=== PATIENT | male | born 1940 | race Caucasian/White ===

== ENCOUNTER → 2023-09-07 15:53 | Outpatient (REF) | payer MEDICARE, OTHER, SELFPAY ==
[2023-09-07 17:58] LABS: ALT (SGPT) 19 U/L (0-50); AST (SGOT) 27 U/L (17-59); Albumin 4.2 g/dl (3.5-5.0); Alkaline Phosphatase 71 U/L (38-126); Blood Urea Nitrogen 20 mg/dl (9-20); Calcium 9.6 mg/dl (8.4-10.2); Carbon Dioxide 30 mmol/L (22-30); Chloride 99 mmol/L (98-107); Glucose 96 mg/dl (70-99); Potassium 4.2 mmol/L (3.5-5.1); Sodium 139 mmol/L (135-145); Total Bilirubin 0.7 mg/dl (0.2-1.3); Total Protein 6.8 g/dl (6.3-8.2); eGFR > 60.00
== END ==
LOC: REG 15:53
PROVIDERS: ATTENDING PHYSICIAN Nurse Practitioner Adult Health
DX: R63.4 Abnormal weight loss (principal)
CPT/HCPCS: 36415; 80053

== ENCOUNTER → 2023-09-14 09:06 | Outpatient (REF) | payer MEDICARE, OTHER, SELFPAY | LOC: HWRAD 09:06 | PROVIDERS: ATTENDING PHYSICIAN Physician Assistant Medical | DX: R63.4 Abnormal weight loss (principal) | CPT/HCPCS: 71260; 74177; Q9967 ==

== ENCOUNTER → 2023-10-25 14:46 | Outpatient (REF) | payer MEDICARE, OTHER, SELFPAY ==
[2023-10-25 15:51] LABS: % Basophils 0.5 % (0-2); % Eosinophils 0.8 % (0-6); % Immature Granulocytes 0.1 % (0-0.5); % Lymphocytes 13.7 % (20.5-51.1); % Monocytes 7.6 % (1.7-9.3); % Neutrophils 77.3 % (42.2-75.2); Absolute Eosinophils 0.1 10^3/uL (0-0.7); Absolute Monocytes 0.6 10^3/uL (0.1-0.6); Absolute Neutrophils 5.7 10^3/uL (1.4-6.5); Hematocrit 40.6 % (39.0-52.0); Mean Corpuscular Hgb 30.2 pg (27.0-31.0); Mean Corpuscular Volume 94.2 fL (80.0-94.0); Mean Platelet Volume 10.1 fL (7.4-10.4); Nucleated Red Blood Cells % 0 % (-); Platelet Count 184 10^3/uL (130-400); Red Blood Cell Count 4.31 10^6/uL (4.70-6.10); Red Cell Dist. Width 14.2 % (11.5-14.5); White Blood Cell Count 7.4 10^3/uL (4.8-10.8)
[2023-10-25 16:02] LABS: ALT (SGPT) 16 U/L (0-50); AST (SGOT) 26 U/L (17-59); Albumin 3.9 g/dl (3.5-5.0); Alkaline Phosphatase 61 U/L (38-126); Blood Urea Nitrogen 21 mg/dl (9-20); Calcium 9.5 mg/dl (8.4-10.2); Carbon Dioxide 27 mmol/L (22-30); Chloride 108 mmol/L (98-107); Glucose 100 mg/dl (70-99); Potassium 4.2 mmol/L (3.5-5.1); Sodium 143 mmol/L (135-145); Total Bilirubin 0.6 mg/dl (0.2-1.3); Total Protein 6.6 g/dl (6.3-8.2); eGFR > 60.00
[2023-10-25 16:31] LABS: TSH Reflex To Free T4 0.72 uIU/ml (0.47-4.68)
== END ==
LOC: REG 14:46
PROVIDERS: ATTENDING PHYSICIAN Physician Assistant Medical
DX: R63.4 Abnormal weight loss (principal)
CPT/HCPCS: 36415; 80053; 84443; 85025

== ENCOUNTER 2024-04-26 13:35 | Observation (INO) | payer MEDICARE, OTHER, SELFPAY ==
[2024-04-25 20:48] VITALS: BP 130/74
--- NOTE | 2024-04-25 21:51 | ED.GENMED ---
History of Present Illness
General
Chief Complaint: Weakness
Source: patient and other (Neighbor)
Exam Limitations: dementia
Time Seen by Provider: 04/25/24 21:34
Nursing documentation reviewed up to this point in time: agreed with
History of Present Illness
History of Present Illness:
83-year-old male with a past medical history of dementia who presents to the emergency room with his neighbor for evaluation of confusion. Patient's neighbor reports that although he does have a history of mild dementia, he is normally rather
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
responsible as he is supposed to administer his 's medications). Apparently over the past week or 2 his neighbor has noticed patient increasingly confused and unsteady on his feet. She brought him into the emergency room to be assessed.
Patient admits to feeling somewhat confused and weak. Denies any other specific complaints. He denies any headache, chest pain, abdominal pain, cough, shortness of breath, URI symptoms, UTI symptoms, diarrhea or vomiting. He says that he had a
minor fall 2 weeks ago but cannot recall any more recent trauma.
Past History
Past History
ED Past Medical History: None
Social History
Tobacco: Non-smoker
Review of Systems
Review of Systems
All Other Systems: ROS reviewed and negative except as documented in HPI and ROS
Constitutional: Reports fatigue
Respiratory: Denies trouble breathing
Cardiac: Denies chest pain
ABD/GI: Denies abdominal pain, vomiting or diarrhea
: Denies dysuria or flank pain
Musculoskeletal: Denies neck pain or back pain
Neurological: Reports other (Confused); Denies dizzy or headache
Phy Exam
Physical Exam
Physical Exam:
General: Awake, alert, oriented x 2; no acute distress
Head: Normocephalic, atraumatic
Eyes: Conjunctiva normal, EOMI, pupils equal round and reactive to light bilateral
Throat: Airway intact, handling secretions
Neck: Trachea midline, supple without meningismus
Lungs: Clear to auscultation bilaterally, no wheezing, rales, rhonchi
Heart: Regular rate and rhythm, faint systolic murmur appreciated at right upper sternal border
Abd: Soft, non distended, nontender
Neuro: Cranial nerves intact 2 through 12, speech fluid no dysarthria or aphasia, motor and sensory function intact and symmetric upper and lower extremities
Skin: no rash, no signs of trauma
Extremities: No edema in extremities, equal pulses in all extremities
Scores
Heart Failure Risk
Heart Failure Risk Score: Not Applicable
Heart Score for Chest Pain Patients
STEMI patient?: Not applicable
Withdrawal Assessment of Alcohol
Withdrawal Assessment Completed?: Not applicable
Course
Orders/Labs/Results
Orders:
Orders
04/25/24 21:35
Electrocardiogram (*1) Urgent
Reason for Study: Fatigue / Weakness
EKG- Treatment ONCE
Urinalysis Reflex To Culture Urgent
04/25/24 21:46
CT Head W/o Iv Contrast Urgent
Comment:
Reason For Exam: confusion
04/25/24 21:47
CR Chest - 2 Views Urgent
Comment:
Reason For Exam: weak, confused
04/25/24 21:48
COVID-19 Antigen Urgent
Source: Nasal Swab
Complete Blood Count/With Diff Urgent
Comprehensive Metabolic Panel Urgent
TSH Reflex To Free T4 Urgent
04/25/24 23:01
Case Management Consult ONCE
Case Management Consult: Long Term Placement
04/25/24 23:06
Pt Eval And Treat Urgent
Activity Level: Ambulate
Abnormal Lab Results
04/25/24
21:48
RBC 4.27 L 10^6/uL
(4.70-6.10)
Hct 38.8 L %
(39.0-52.0)
Absolute Lymphs (auto) 1.1 L 10^3/uL
(1.2-3.4)
Lymphocytes % 17.3 L %
(20.5-51.1)
BUN 30 H mg/dl
(9-20)
Glucose 111 H mg/dl
(70-99)
04/25/24 21:48
04/25/24 21:48
Vital Signs
Initial and Last Documented VS:
Initial Vital Signs
Temp Pulse Resp BP Pulse Ox
36.7 C 84 16 130/74 96
04/25/24 20:48 04/25/24 20:48 04/25/24 20:48 04/25/24 20:48 04/25/24 20:48
Last Documented Vital Signs
Temp Pulse Resp BP Pulse Ox
36.7 C 84 16 130/74 96
04/25/24 20:48 04/25/24 20:48 04/25/24 20:48 04/25/24 20:48 04/25/24 20:48
MDM/Problems Addressed
Differential Diagnosis Includes:
Worsening dementia/delirium, infection including UTI/pneumonia/viral syndrome, electrolyte derangement, dehydration
MDM/Problems Addressed:
83-year-old male presents to the emergency room for evaluation of increased confusion and weakness over the past few weeks. Vitals and exam as above. Will place an IV check labs including a CBC and a CMP, thyroid studies. Check swab for COVID,
chest x-ray, urinalysis for basic infectious workup. Check CT head. Will monitor and reassess after the above.
Labs reviewed: CBC and CMP unremarkable. CT head negative. Chest x-ray no acute disease. Viral swabs normal. EKG shows sinus rhythm. No clear acute pathology at play here, suspect this may just be intermittent delirium/progression of dementia.
I had a long discussion with patient and his neighbor. She says that especially with his being hospitalized, patient would now be completely alone at home and she feels that this is an unsafe situation and I tend to agree. Patient does have a
nephew but he lives in [facility] and is unable to come to be with patient tonight. Will plan to keep overnight here in the emergency room, case management to see tomorrow to potentially coordinate short-term [place] [facility] while his is
hospitalized.
Patient's neighbor left contact information
Gabbie Flynn (neighbor): [phone]
Hany Li (nephew): [phone]
Chronic conditions affecting care:
Dementia
*Radiology
Radiology exam reviewed: preliminary read by ED provider and radiology read reviewed
*Pulse Oximetry
Patient hypoxic: no
*Critical Care Note
Total Time (30-74mins, 75-104mins- exclusive of procedures): Not Applicable
Data Reviewed
Source: patient and other (Neighbor)
ED Attending Note
-
Portions of this chart may have been created with voice recognition software.� Occasional wrong word or��sound alike� substitutions may have occurred due to the inherent limitations of voice recognition software.
Discharge Plan
Departure
Patient Disposition: Long Term/SNF
Date of Disposition: 04/25/24
Time of Disposition: 23:09
Admit to doctor: SIGRID mar for placement in AM
Discharge Problem:
Dementia
Prescriptions:
No Action
ascorbic acid (vitamin C) [Vitamin C] 500 MG tablet
500 mg PO DAILY
bimatoprost [Lumigan] 1 DROP drops
1 drp ophthalmic (eye) HS
Referrals:
UNKNOWN - PT DOES,NOT KNOW [Family Provider] -
Interventions
Interventions:
*Risk Screen - Suicide Last Done: 04/25/24 20:48
*General Assessment Last Done: 04/25/24 20:48
*Neglect/Abuse Screening Last Done: 04/25/24 20:48
ED- Fall Risk Assessment Last Done: 04/25/24 22:00
*ED COVID-19 Vaccine History Last Done: 04/25/24 20:48
ED- Cardiac Assessment Last Done: 04/25/24 22:00
ED- Neurological Assessment Last Done: 04/25/24 22:00
ED- Pulmonary Assessment Last Done: 04/25/24 22:00
Discharge Date and Time
Print Language: TELUGU
[2024-04-25 21:59] VITALS: BMI 19.3
[2024-04-25 22:01] LABS: % Basophils 0.6 % (0-2); % Eosinophils 0.8 % (0-6); % Immature Granulocytes 0.3 % (0-0.5); % Lymphocytes 17.3 % (20.5-51.1); % Monocytes 7.9 % (1.7-9.3); % Neutrophils 73.1 % (42.2-75.2); Absolute Eosinophils 0.1 10^3/uL (0-0.7); Absolute Lymphocytes 1.1 10^3/uL (1.2-3.4); Absolute Monocytes 0.5 10^3/uL (0.1-0.6); Absolute Neutrophils 4.6 10^3/uL (1.4-6.5); Hematocrit 38.8 % (39.0-52.0); Mean Corp Hgb Conc. 33.5 g/dL (33.0-37.0); Mean Corpuscular Hgb 30.4 pg (27.0-31.0); Mean Corpuscular Volume 90.9 fL (80.0-94.0); Mean Platelet Volume 9.3 fL (7.4-10.4); Nucleated Red Blood Cells % 0 % (-); Platelet Count 171 10^3/uL (130-400); Red Blood Cell Count 4.27 10^6/uL (4.70-6.10); Red Cell Dist. Width 13.8 % (11.5-14.5); White Blood Cell Count 6.3 10^3/uL (4.8-10.8)
[2024-04-25 22:14] LABS: COVID-19 Antigen Negative (Negative)
[2024-04-25 22:21] LABS: ALT (SGPT) 15 U/L (0-50); AST (SGOT) 22 U/L (17-59); Alkaline Phosphatase 56 U/L (38-126); Blood Urea Nitrogen 30 mg/dl (9-20); Calcium 9.2 mg/dl (8.4-10.2); Carbon Dioxide 26 mmol/L (22-30); Chloride 106 mmol/L (98-107); Estimated Creatinine Clearance 62 ml/min; Glucose 111 mg/dl (70-99); Sodium 143 mmol/L (135-145); Total Bilirubin 0.5 mg/dl (0.2-1.3); Total Protein 6.6 g/dl (6.3-8.2); eGFR > 60.00
[2024-04-26 01:59] LABS: Urine Albumin Trace (Neg - Trace); Urine Bilirubin Negative (Negative); Urine Character Clear (Clear); Urine Color Yellow; Urine Glucose Negative (Negative); Urine Ketone 1+ (Negative); Urine Leukocyte Negative (Negative); Urine Nitrite Negative (Negative); Urine Occult Blood Negative (Negative); Urine Urobilinogen Negative (Neg - 1+)
[2024-04-26 02:00] VITALS: BP 137/69
--- NOTE | 2024-04-26 08:24 | PHANOTE ---
MED REC NOTE- PATIENT HERE IN [place]HER WITH WHO WAS ADMITTED A COUPLE DAYS AGO, PATIENT CAREGIVER IS HIS , ALSO HAS MEMORY ISSUE. CALLED ROOM BUT NO ANSWER BUT HAD 3 MEDICATION FILLED AND NO ECW
[2024-04-26 09:29] VITALS: BP 147/83
--- NOTE | 2024-04-26 11:39 | CM ---
Patient seen bedside, confused, reports he is not sure where he is living, confirmed he does live with his , was able to then give CM address where they are residing.
CM spoke with patients Hany mejia, resides in [place], [facility]. CM discussed recommendation of short term rehab for patient, would be considered private [facility]. Hany reports he has no idea what patient/ finances are like. Hany
reports he is unable to stay with patient, patient and do not have children, neighbor, Gabbie, checks on patient daily, helps with grocery shopping. Hany unsure if patient has a POA, has been trying to get patient and his to look into
assisted living facilities, not agreeable. Hany reports patient is caregiver for , has mostly been in bed the past few days, reports patients memory is still there, physically patient has been caring for his .
Patients , patient in room 432, seen bedside with roberto Hany. Patients reports she does have a Will, provided information to Hany, will contact to see if there is any POA as patients is unsure. reports they are unable to
private pay for patient to go to rehab, would be agreeable to list of private caregivers, will provide list to patients nephew. Patients agreeable for Hany to assist with discharge planning for herself and patient.
Plan; per patient /family, unable to private pay for SNF, agreeable to list of private caregivers.
--- NOTE | 2024-04-26 12:59 | HPS.HSE ---
Addendum entered and electronically signed by Hallie Benitez MD 04/26/24 14:06:
I was able to reach patient's who stated when filled out living will patient was DNR, as she is too. I rediscussed this with patient who agrees he wouldn't want CPR. I have changed code status to DNR.
Original Note:
Family Physician
-
Family Physician: NOT KNOW UNKNOWN - PT DOES
Chief Complaint
-
caretaking issues
History of Present Illness
Mr. Jaret Simpson is a 83 yo man with hx dementia, HLD, BPH who was brought to the ER on 04/25 with report of confusion from patient's neighbor. Patient's is currently admitted.
Patient has been in the ER overnight. He tells me that physically he feels well but he feels he is losing short term memory. He denies fevers/chills, no cough/congestion, no chest pain, no shortness of breath, no nausea/vomiting/diarrhea. He is
currently about to eat lunch. During our conversation patient answers questions somewhat appropriately but is tangential. He is able to tell me he has a nephew coming from 2 hours away. He used to go grocery shopping without a problem and lately
is forgetting things.
Medical History
Past Medical History
Past Medical History: Reports Other ( dementia, HLD, BP)
Past Surgical History: Reports Other (hand surgery)
Social History
Tobacco: Non-smoker
Alcohol: None
Family History
Family History: Not pertinent
Allergies / Home Medications
Allergies reflects when Allergies were last updated in [place].
Home Medications with original date entered in [place]
Allergy/Medication List:
Allergies
Allergy/AdvReac Type Severity Reaction Status Date / Time
aspirin Allergy Unknown Verified 08/22/20 18:50
Home Medications
donepezil 5 mg tablet 5 mg PO HS cognition/memory 04/26/24
finasteride 5 mg tablet 5 mg PO DAILY Urinary Issue 04/26/24
rosuvastatin 10 mg tablet (Crestor) 10 mg PO DAILY High Cholesterol 04/26/24
Review of Systems
-
History Source: Patient
A 12 point ROS was completed and negative except as noted: Yes
Physical Exam
Vital Signs
Vital Signs
Temp Pulse Resp BP Pulse Ox
98.1 F 68 16 147/83 96
04/26/24 02:00 04/26/24 09:29 04/25/24 20:48 04/26/24 09:29 04/26/24 09:29
Physical Exam
General: Other (frail appearing)
HEENT: PERRLA
Respiratory: Clear; No Wheezes
Cardiac: S1/S2 and Regular Rhythm
GI: Soft and Non Tender
Musculoskeletal: No Edema
Skin: Warm and Dry; No Rash
Neuro: AO x 3
Psych: Calm
Laboratory Results
-
04/25/24 21:48
04/25/24 21:48
Laboratory Results
Total Bilirubin 0.5 mg/dl (0.2-1.3) 04/25/24 21:48
AST 22 U/L (17-59) 04/25/24 21:48
ALT 15 U/L (0-50) 04/25/24 21:48
Alkaline Phosphatase 56 U/L (38-126) 04/25/24 21:48
Data Reviewed
-
Diagnostic Radiology: Report Reviewed by me
Lab Data: Labs Reviewed by me
Impression/Plan
-
Mr. Jaret Simpson is a 83 yo man with hx dementia, HLD, BPH who was brought to the ER on 04/25 with report of confusion from patient's neighbor. Patient normally lives with his who is currently admitted.
Triage VS: T 36.7C, P 84, RR 16, BP 130/74, SpO2 96%
LABS: WBC 6.3, Hg 13, PLT 171, Na 143, K+ 4.0, Cl 106, BUN 30, Cr 0.8, Glucose 111, liver enzymes WNL
covid negative
HEAD CT 04/25/24
IMPRESSION:
No acute intracranial abnormality.
CXR 04/25/24
IMPRESSION:
No acute cardiopulmonary process.
Confusion
Ambulatory Dysfunction
-infectious and metabolic work-up negative, may be progression of dementia/ worsening confusion while is hospitalized. Worked with PT this morning and SNF recommended but patient needs time for placement and will need financial applications
completed per CM. will therefore admit to observation with further PT/OT
HLD
-OIL WELL ENGINEER Crestor
Dementia
-OIL WELL ENGINEER Donepezil
BPH
-OIL WELL ENGINEER Finasteride
DVT PPx Lovenox subQ
FULL CODE - patient with competence to answer this question on admission stating for catholic purposes he would want everything done - will confirm with family once I reach them
[2024-04-26 14:55] VITALS: BP 133/75
[2024-04-26 14:57] VITALS: BMI 18.6
--- NOTE | 2024-04-26 15:21 | PTCARENOTE ---
pt presents from ED via wheel chair. pt is AAO*2, hx of dementia at baseline. pt is pleasantly confused. bed alarm in. no c/o pain at this time. plan of care ongoing.
--- NOTE | 2024-04-26 16:31 | PTCARENOTE ---
pt on research study. pt with meds from study. pt states to take it while he is at the hospital. Dr. Benitez made aware.
[2024-04-26 16:40] LABS: Vitamin B12 302 pg/ml (239-931)
[2024-04-26] MEDS: LOVENOX 40 MG SC (17:06)
[2024-04-26] MEDS: [UNRECOGNIZED DRUG - REMARK] 1 UNIT PO (21:27)
[2024-04-26] MEDS: ARICEPT 5 MG PO (21:27)
[2024-04-26 23:00] VITALS: BP 141/85
[2024-04-27 08:00] VITALS: BP 143/89
[2024-04-27 08:03] LABS: Hematocrit 38.9 % (39.0-52.0); Hemoglobin 13.2 g/dL (13.0-18.0); Mean Corp Hgb Conc. 33.9 g/dL (33.0-37.0); Mean Corpuscular Hgb 31.1 pg (27.0-31.0); Mean Corpuscular Volume 91.7 fL (80.0-94.0); Platelet Count 162 10^3/uL (130-400); Red Blood Cell Count 4.24 10^6/uL (4.70-6.10); Red Cell Dist. Width 13.7 % (11.5-14.5)
[2024-04-27] MEDS: CRESTOR 10 MG PO (08:24)
[2024-04-27] MEDS: PROSCAR 5 MG PO (08:24)
[2024-04-27] MEDS: [UNRECOGNIZED DRUG - REMARK] 1 UNIT PO ×2 (08:31→20:37)
[2024-04-27 08:33] LABS: Blood Urea Nitrogen 21 mg/dl (9-20); Calcium 8.7 mg/dl (8.4-10.2); Carbon Dioxide 29 mmol/L (22-30); Chloride 104 mmol/L (98-107); Estimated Creatinine Clearance 69 ml/min; Glucose 97 mg/dl (70-99); Potassium 3.7 mmol/L (3.5-5.1); Sodium 141 mmol/L (135-145); eGFR > 60.00
[2024-04-27 13:04] VITALS: BP 141/96; PULSE 74; O2SAT 97
--- NOTE | 2024-04-27 14:25 | W.PN.HOSP.TC ---
Today's Communication/Plan
-
d/c planning
Assessment / Plan
Assessment / Plan
HEAD CT 04/25/24
IMPRESSION:
No acute intracranial abnormality.
CXR 04/25/24
IMPRESSION:
No acute cardiopulmonary process.

Mild cognitive impairment
Ambulatory Dysfunction
-No clear explanation based on workup of secondary reason of encephalopathy
-Patient have some mild cognitive impairment and already on donepezil
-Patient primarily requires a safe discharge plan at this point
-Does not have any behavioral problems and very pleasant to interact
HLD
-GRAIN FARMWORKER Crestor
Dementia
-GRAIN FARMWORKER Donepezil
BPH
-GRAIN FARMWORKER Finasteride
DVT PPx Lovenox subQ
FULL CODE -
Anticipated Discharge: Today
Subjective/Interval History
-
Date of Service: April 27, 2024
no complains overnight
Objective Data
-
Labs:
Laboratory Results
04/27/24
07:39
WBC 7.0
Hgb 13.2
Hct 38.9 L
Plt Count 162
Sodium 141
Potassium 3.7
Chloride 104
Carbon Dioxide 29
BUN 21 H
Creatinine 0.7
Glucose 97
Calcium 8.7
Vital Signs:
Vital Signs
Temp Pulse Resp BP Pulse Ox
98.2 F 63 18 143/89 97
04/27/24 08:00 04/27/24 08:00 04/27/24 08:00 04/27/24 08:00 04/27/24 08:00
I&O
04/26/24 04/27/24 04/28/24
06:59 06:59 06:59
Output Total 500 / 500
Balance -500 / -500
Review of Systems
-
Respiratory: Reports No Symptoms
Cardiac: Reports No Symptoms
Abdomen/GI: Reports No Symptoms
Physical Exam
-
General: No Apparent Distress and Comfortable
HEENT: Negative Oxygen
Respiratory: Clear to Auscultation
Cardiac: Regular Rhythm and S1/S2; Negative Murmur or Rub
GI: Soft, Nontender, Nondistended and Normal Bowel Sounds
Musculoskeletal: No Edema
Neuro: Awake, Alert, No Motor Deficits and Nonfocal/Grossly Intact
Psych: Calm
[2024-04-27 15:40] VITALS: BMI 18.6
[2024-04-27 15:42] VITALS: BP 131/73
--- NOTE | 2024-04-27 16:50 | PTCARENOTE ---
Assumed care at 0715. Patient confused to place, alert to time and date. Able to a make needs known, very forgetful. VSS, bed alarm in place, call chavez in reach
[2024-04-27] MEDS: LOVENOX 40 MG SC (17:36)
--- NOTE | 2024-04-27 18:11 | CM ---
Alert confused forgetful patient who lives with his Desiree who is also in hospital and confused. He provides total care to her .They live in a 2 story home with 2 step to enter .[employer]PER[employer] he was independent in driving and in all activities of daily
living.As per PT OT needs SNF. He is under observation and not part of waiver program. STACI given explained Copy on chart he did not sign it.As per CM for they have a nephew Hany [phone] . CM did not speak with him.
Pharmacy [facility]
PCP DR Luveano but he is unsure
PLAN Needs SNF . He is under Observation
[2024-04-27] MEDS: ARICEPT 5 MG PO (20:37)
[2024-04-27 23:15] VITALS: BP 162/94
[2024-04-28 07:35] VITALS: BP 141/75
[2024-04-28] MEDS: PROSCAR 5 MG PO (10:20)
[2024-04-28] MEDS: CRESTOR 10 MG PO (10:20)
[2024-04-28] MEDS: [UNRECOGNIZED DRUG - REMARK] 1 UNIT PO ×2 (10:21→20:35)
[2024-04-28 15:20] VITALS: BP 119/67
--- NOTE | 2024-04-28 15:41 | W.PN.HOSP.TC ---
Today's Communication/Plan
-
psych consult
Assessment / Plan
Assessment / Plan
HEAD CT 04/25/24
IMPRESSION:
No acute intracranial abnormality.
CXR 04/25/24
IMPRESSION:
No acute cardiopulmonary process.

Mild cognitive impairment
Ambulatory Dysfunction
-No clear explanation based on workup of secondary reason of encephalopathy
-Patient have some mild cognitive impairment and already on donepezil
-Patient primarily requires a safe discharge plan at this point
-Does not have any behavioral problems and very pleasant to interact
Probably at baseline status. Reviewed with SIGRID Irwin. Will request psych input
HLD
-INSTRUCTOR ADJUNCT SURGICAL TECHNICIAN Crestor
Dementia
-INSTRUCTOR ADJUNCT SURGICAL TECHNICIAN Donepezil
BPH
-INSTRUCTOR ADJUNCT SURGICAL TECHNICIAN Finasteride
DVT PPx Lovenox subQ
FULL CODE -
Anticipated Discharge: 24 - 48 hours
Subjective/Interval History
-
Date of Service: April 28, 2024
Awake, alert, answering basic questions, obvious impaired cognitive fxn
Objective Data
-
Vital Signs:
Vital Signs
Temp Pulse Resp BP Pulse Ox
97.7 F 66 16 141/75 97
04/28/24 07:35 04/28/24 07:35 04/28/24 07:35 04/28/24 07:35 04/28/24 07:35
I&O
04/27/24 04/28/24 04/29/24
06:59 06:59 06:59
Intake Total 0 / 0
Output Total 500 / 500 575 / 575
Balance -500 / -500 -575 / -575
Review of Systems
-
Unable to obtain full review of systems at this time due to: Dementia
History Source: Patient and Coordinated Provider (reviewed with case management)
Constitutional: Denies Fever
EENT: Reports No Symptoms Reported
Respiratory: Reports No Symptoms
Cardiac: Reports No Symptoms
Abdomen/GI: Reports No Symptoms
Physical Exam
-
General: Well Developed, No Apparent Distress and Comfortable
HEENT: Normocephalic, Atraumatic and Moist Mucous Membranes
Respiratory: Clear to Auscultation; Negative Wheezes, Rales or Rhonchi
Cardiac: Regular Rhythm and S1/S2
GI: Soft, Nontender and Nondistended
Musculoskeletal: No Clubbing, No Cyanosis and No Edema
Neuro: Awake and Alert
[2024-04-28] MEDS: LOVENOX 40 MG SC (18:26)
[2024-04-28] MEDS: ARICEPT 5 MG PO (20:35)
[2024-04-29 00:01] VITALS: BP 159/98
[2024-04-29 07:40] VITALS: BP 149/89
[2024-04-29] MEDS: [UNRECOGNIZED DRUG - REMARK] 1 UNIT PO ×2 (08:13→20:16)
[2024-04-29] MEDS: PROSCAR 5 MG PO (08:13)
[2024-04-29] MEDS: CRESTOR 10 MG PO (08:13)
--- NOTE | 2024-04-29 11:52 | W.PN.HOSP.TC ---
Today's Communication/Plan
-
await input from psych to help facilitate disposition
Assessment / Plan
Assessment / Plan
HEAD CT 04/25/24
IMPRESSION:
No acute intracranial abnormality. Moderate parenchymal atrophy. (my read is moderate to severe)
CXR 04/25/24
IMPRESSION:
No acute cardiopulmonary process.

Mild cognitive impairment
Ambulatory Dysfunction
-No clear explanation based on workup of secondary reason of encephalopathy
-Patient have some mild cognitive impairment and already on donepezil
-Patient primarily requires a safe discharge plan at this point
-Does not have any behavioral problems and very pleasant to interact
Probably at baseline status. Reviewed with SIGRID Irwin 04/28. Will request psych input
HLD
-PLUG WIRER Crestor
Dementia
-PLUG WIRER Donepezil
BPH
-PLUG WIRER Finasteride
DVT PPx Lovenox subQ
FULL CODE -
Anticipated Discharge: 24 - 48 hours
Subjective/Interval History
-
Date of Service: April 29, 2024
Awake, alert. Seems more cognitively better today compared to yesterday
Objective Data
-
Vital Signs:
Vital Signs
Temp Pulse Resp BP Pulse Ox
97.7 F 68 16 149/89 95
04/29/24 07:40 04/29/24 07:40 04/29/24 07:40 04/29/24 07:40 04/29/24 07:40
I&O
04/28/24 04/29/24 04/30/24
06:59 06:59 06:59
Intake Total 0 / 0 1200 / 1200
Output Total 575 / 575 750 / 750
Balance -575 / -575 450 / 450
Review of Systems
-
Unable to obtain full review of systems at this time due to: Dementia
History Source: Patient and Coordinated Provider (reviewed with case management 04/28)
Constitutional: Denies Fever
EENT: Reports No Symptoms Reported
Respiratory: Reports No Symptoms
Cardiac: Reports No Symptoms
Abdomen/GI: Reports No Symptoms
Physical Exam
-
General: Well Developed, No Apparent Distress and Comfortable
HEENT: Normocephalic, Atraumatic and Moist Mucous Membranes
Respiratory: Clear to Auscultation; Negative Wheezes, Rales or Rhonchi
Cardiac: Regular Rhythm and S1/S2
GI: Soft, Nontender and Nondistended
Musculoskeletal: No Clubbing, No Cyanosis and No Edema
Neuro: Awake, Alert and Oriented (more conversant today, discussed his prior occupation, still with some degree of rambling speech)
--- NOTE | 2024-04-29 13:53 | CS.PSYCHR ---
Consult Summary - Psychiatry
-
Pt is an 83 yo male with dementia, who was brought to the ER on 04/25 with report of confusion from patient's neighbor. Pt's is reportedly admitted. Pt noted to be pleasantly confused since admission. Psychiatry asked to assess if any other
condition is affecting pt's mental state/behavior. Pt seen sitting up in chair, alert, calm, pleasant, aware he has memory problems, able to state he is on a study drug, has been taking it for 5 years, with 'some improvement'. Pt able state he is
in [facility], states the people are nice.
PMH: dementia, HLD, BPH
Psych Hx: denies
SH: lives with in a private one-story home; is noted to be currently admitted
MSE: alert, calm, cooperative, oriented to name, place, time/date. Appropriate affect. Mood good, denies depression or anxiety. Speech coherent, thought clear. No signs of psychosis, no agitation. Insight appears fair
Imp: Dementia. No indication for psychiatric intervention, no behavior disturbance
Rec: continue current medications for dementia. Appears psychiatrically stable to return to outpatient care
[2024-04-29 15:30] VITALS: BP 104/60
[2024-04-29] MEDS: LOVENOX 40 MG SC (17:34)
[2024-04-29] MEDS: ARICEPT 5 MG PO (20:16)
[2024-04-29 23:32] VITALS: BP 148/82
[2024-04-30 08:20] VITALS: BP 148/87
[2024-04-30] MEDS: PROSCAR 5 MG PO (08:27)
[2024-04-30] MEDS: CRESTOR 10 MG PO (08:27)
[2024-04-30] MEDS: [UNRECOGNIZED DRUG - REMARK] 1 UNIT PO ×2 (08:28→21:39)
--- NOTE | 2024-04-30 11:45 | CM ---
Addendum entered by Bhumika Mota 04/30/24 15:46:
additional referrals sent to [facility]. await responses.
Addendum entered by Bhumika Mota 04/30/24 13:32:
Patient is on an investigative drug and is willing to go off of the medication if it were to mean that he could be with his . CM will call to nephew to continue investigation of options. Per Debora Hoyt patient nephew stated that his uncle had
driven himself and gotten lost in the last month. CM will call to nephew and explore other options. But [facility] unwilling to accept without contact with POA/financial person to assist with plan. CM will continue to follow for discharge planning needs.
Plan; SNF
Addendum entered by Bhumika Mota 04/30/24 12:58:
Patient referral sent to [facility]. CM awaiting response.
Original Note:
Patient declined by [facility] due to no beds. CM will continue to coordinate with CM to go to the same facility. Patient nephew indicated that private pay would not be a concern and indicated that the executrix is Adeola Linares in [place].
CM will continue to follow for discharge planning needs.
Plan; SNF
[2024-04-30 15:58] VITALS: BP 138/82
[2024-04-30] MEDS: LOVENOX 40 MG SC (17:03)
--- NOTE | 2024-04-30 17:40 | W.PN.HOSP.TC ---
Today's Communication/Plan
-
continue current Tx. Await dispo
Assessment / Plan
Assessment / Plan
HEAD CT 04/25/24
IMPRESSION:
No acute intracranial abnormality. Moderate parenchymal atrophy. (my read is moderate to severe)
CXR 04/25/24
IMPRESSION:
No acute cardiopulmonary process.

Mild cognitive impairment
Ambulatory Dysfunction
-No clear explanation based on workup of secondary reason of encephalopathy
-Patient have some mild cognitive impairment and already on donepezil as well as a study drug of unknown type
-Patient primarily requires a safe discharge plan at this point
-Does not have any behavioral problems and very pleasant to interact
Probably at baseline status. Reviewed with SIGRID Denson 04/30. Appreciate psych input
would do best at an assisted living facility, reviewed with SIGRID. Await if can be worked out logistically
HLD
-DESIGN CHIEF Crestor
Dementia
-DESIGN CHIEF Donepezil
BPH
-DESIGN CHIEF Finasteride
DVT PPx Lovenox subQ
FULL CODE -
Anticipated Discharge: 24 - 48 hours
Subjective/Interval History
-
Date of Service: April 30, 2024
Calm, conversant
Objective Data
-
Vital Signs:
Vital Signs
Temp Pulse Resp BP Pulse Ox
98 F 70 18 138/82 98
04/30/24 15:58 04/30/24 15:58 04/30/24 15:58 04/30/24 15:58 04/30/24 15:58
I&O
04/29/24 04/30/24 05/01/24
06:59 06:59 06:59
Intake Total 1200 / 1200 870 / 870
Output Total 750 / 750 450 / 450
Balance 450 / 450 420 / 420
Review of Systems
-
Unable to obtain full review of systems at this time due to: Dementia
History Source: Patient and Coordinated Provider (reviewed with case management 04/30)
Constitutional: Denies Fever
EENT: Reports No Symptoms Reported
Respiratory: Reports No Symptoms
Cardiac: Reports No Symptoms
Abdomen/GI: Reports No Symptoms
Physical Exam
-
General: Well Developed, No Apparent Distress and Comfortable
HEENT: Normocephalic, Atraumatic and Moist Mucous Membranes
Respiratory: Clear to Auscultation; Negative Wheezes, Rales or Rhonchi
Cardiac: Regular Rhythm and S1/S2
GI: Soft, Nontender and Nondistended
Musculoskeletal: No Clubbing, No Cyanosis and No Edema
Neuro: Awake, Alert and Oriented (more conversant today, discussed his prior occupation, still with some degree of rambling speech)
[2024-04-30] MEDS: ARICEPT 5 MG PO (21:39)
[2024-04-30 23:45] VITALS: BP 116/74
[2024-05-01 07:35] VITALS: BP 139/83
[2024-05-01] MEDS: CRESTOR 10 MG PO (08:58)
[2024-05-01] MEDS: [UNRECOGNIZED DRUG - REMARK] 1 UNIT PO (08:58)
[2024-05-01] MEDS: PROSCAR 5 MG PO (08:58)
[2024-05-01 11:39] LABS: Glucose - Point of Care 95 mg/dl (70-99)
[2024-05-01 12:20] VITALS: BP 126/74; PULSE 72
[2024-05-01 15:09] VITALS: BP 106/68
--- NOTE | 2024-05-01 15:23 | W.PN.HOSP.TC ---
Today's Communication/Plan
-
dc now
Assessment / Plan
Assessment / Plan
HEAD CT 04/25/24
IMPRESSION:
No acute intracranial abnormality. Moderate parenchymal atrophy. (my read is moderate to severe)
CXR 04/25/24
IMPRESSION:
No acute cardiopulmonary process.

Mild cognitive impairment
Ambulatory Dysfunction
-No clear explanation based on workup of secondary reason of encephalopathy
-Patient have some mild cognitive impairment and already on donepezil as well as a study drug of unknown type
-Patient primarily requires a safe discharge plan at this point
-Does not have any behavioral problems and very pleasant to interact
Probably at baseline status. Reviewed with CM 05/01. Appreciate psych input
will dc to [facility]
HLD
-ETCHER APPRENTICE PHOTOENGRAVING Crestor
Dementia
-ETCHER APPRENTICE PHOTOENGRAVING Donepezil
BPH
-ETCHER APPRENTICE PHOTOENGRAVING Finasteride
DVT PPx Lovenox subQ
FULL CODE -
More than 30 minutes spent in discharge including
Final examination of the patient
Summarizing hospital stay
Instructions for continuing care to all relevant caregivers
Preparation of discharge records, prescriptions, and referral forms
Total time spent (in minutes): 45
Anticipated Discharge: Today
Subjective/Interval History
-
Date of Service: May 01, 2024
Just notified by that [facility] will accept
Objective Data
-
Vital Signs:
Vital Signs
Temp Pulse Resp BP Pulse Ox
98.1 F 86 20 106/68 95
05/01/24 15:09 05/01/24 15:09 05/01/24 15:09 05/01/24 15:09 05/01/24 15:09
I&O
04/30/24 05/01/24 05/02/24
06:59 06:59 06:59
Intake Total 870 / 870 960 / 960
Output Total 450 / 450 675 / 675
Balance 420 / 420 285 / 285
Review of Systems
-
Unable to obtain full review of systems at this time due to: Dementia
History Source: Patient and Coordinated Provider (reviewed with case management 05/01 x 3 today)
Constitutional: Denies Fever
EENT: Reports No Symptoms Reported
Respiratory: Reports No Symptoms
Cardiac: Reports No Symptoms
Abdomen/GI: Reports No Symptoms
Physical Exam
-
General: Well Developed, No Apparent Distress and Comfortable
HEENT: Normocephalic, Atraumatic and Moist Mucous Membranes
Respiratory: Clear to Auscultation; Negative Wheezes, Rales or Rhonchi
Cardiac: Regular Rhythm and S1/S2
GI: Soft, Nontender and Nondistended
Musculoskeletal: No Clubbing, No Cyanosis and No Edema
Neuro: Awake, Alert and Oriented (more conversant today, actually discussing reasonably appropriately)
--- NOTE | 2024-05-01 15:30 | W.DS.TRANS ---
DC Summary - Vp Client Services
-
Discharge Instructions:
Discharge Diagnosis/Procedures Acute on Chronic Dementia
Diet Regular
Activity With assistance
Driving Restrictions No driving
Bathing Restrictions None
Instructions:
Stand-Alone Forms:
Changes to Home Medications: No
Discharge Medications:
DC Medications w/original date entered in [facility]
donepezil 5 mg tablet 5 mg PO HS cognition/memory 04/26/24
finasteride 5 mg tablet 5 mg PO DAILY Urinary Issue 04/26/24
rosuvastatin 10 mg tablet (Crestor) 10 mg PO DAILY High Cholesterol 04/26/24
Research Medication 1 tab PO BID 04/28/24
polyethylene glycol 3350 17 gram oral powder packet 17 g PO DAILYPRN PRN constipation #0 ea 05/01/24
Home Medication Changes
Pending Results: No
--- NOTE | 2024-05-01 16:29 | CM ---
Spoke with pt in room .He is less confused.
PT OT indicate SNF.
Pt requested [facility].
Shelley from [facility] worked with family and pt was accepted today.
Gabbie pts neighbor was visiting today . IMM reviewed with pt He agreed with dc.IMM signed on chart . Copy given to pt . too.
Medical nec form completed Ambulance set up .
[facility]
report [phone]
fax [phone]
PLAN To [facility] for SNF .
== END 2024-05-01 18:43 ==
LOC: 4 EAST ACU 13:35
PROVIDERS: ADMITTING PHYSICIAN Student in an Organized Health Care Education/Training Program; ATTENDING PHYSICIAN Internal Medicine; EMERGENCY PHYSICIAN Emergency Medicine
DX: F03.90 Unspecified dementia, unspecified severity, without behavioral disturbance, psychotic disturbance, mood disturbance, and anxiety (principal); Z02.2 Encounter for examination for admission to residential institution; Z11.52 Encounter for screening for COVID-19; Z66 Do not resuscitate; N40.0 Benign prostatic hyperplasia without lower urinary tract symptoms; E78.5 Hyperlipidemia, unspecified; Z79.899 Other long term (current) drug therapy; R26.2 Difficulty in walking, not elsewhere classified
CPT/HCPCS: 70450; 71046; 80048; 80053; 81003; 82607; 82962; 84443; 85025; 85027; 87811; 93005; 97116; 97167; 97530; 99284; G0378

== ENCOUNTER → 2024-05-04 11:24 | Outpatient (REF) | payer OTHER, MEDICARE, SELFPAY ==
[2024-05-04 12:23] LABS: % Basophils 0.6 % (0-2); % Eosinophils 1.4 % (0-6); % Immature Granulocytes 0.2 % (0-0.5); % Monocytes 7.5 % (1.7-9.3); % Neutrophils 74.3 % (42.2-75.2); Absolute Basophils 0.1 10^3/uL (0-0.2); Absolute Eosinophils 0.1 10^3/uL (0-0.7); Absolute Lymphocytes 1.3 10^3/uL (1.2-3.4); Absolute Monocytes 0.6 10^3/uL (0.1-0.6); Hematocrit 43.8 % (39.0-52.0); Hemoglobin 14.1 g/dL (13.0-18.0); Mean Corp Hgb Conc. 32.2 g/dL (33.0-37.0); Mean Corpuscular Hgb 30.4 pg (27.0-31.0); Mean Corpuscular Volume 94.4 fL (80.0-94.0); Mean Platelet Volume 10.7 fL (7.4-10.4); Nucleated Red Blood Cells % 0 % (-); Platelet Count 210 10^3/uL (130-400); Red Blood Cell Count 4.64 10^6/uL (4.70-6.10); Red Cell Dist. Width 14.1 % (11.5-14.5)
[2024-05-04 12:51] LABS: ALT (SGPT) 20 U/L (0-50); AST (SGOT) 25 U/L (17-59); Alkaline Phosphatase 69 U/L (38-126); Blood Urea Nitrogen 22 mg/dl (9-20); Calcium 9.3 mg/dl (8.4-10.2); Carbon Dioxide 29 mmol/L (22-30); Chloride 104 mmol/L (98-107); Glucose 107 mg/dl (70-99); Magnesium 2.1 mg/dl (1.6-2.3); Sodium 142 mmol/L (135-145); Total Bilirubin 0.5 mg/dl (0.2-1.3); Total Protein 6.7 g/dl (6.3-8.2); eGFR > 60.00
== END ==
LOC: OLABWHC 11:24
PROVIDERS: ATTENDING PHYSICIAN Family Medicine
DX: E78.00 Pure hypercholesterolemia, unspecified (principal)
CPT/HCPCS: 36415; 80053; 83735; 85025

== ENCOUNTER 2024-05-28 12:08 | Inpatient (IN) | payer MEDICARE, OTHER, SELFPAY ==
[2024-05-26 22:46] VITALS: BP 140/76
[2024-05-26 22:48] VITALS: BP 140/76
--- NOTE | 2024-05-26 23:03 | ED.GENMED ---
History of Present Illness
General
Chief Complaint: Abdominal Symptoms
Source: patient, ambulance crew, long-term and previous hospital records (Recent hospitalization April 25 to May 01-primarily social admission due to acute progressive dementia requiring long-term placement)
Exam Limitations: none
Time Seen by Provider: 05/26/24 22:44
Nursing documentation reviewed up to this point in time: agreed with
History of Present Illness
History of Present Illness:
This is an 84-year-old gentleman with history of dementia who had been residing at home with his but due to acute progressive dementia that abruptly worsened 1 month ago when his was acutely hospitalized, patient himself was hospitalized
here April 25 to May 01. Case management was able to arrange for both patient and his to be admitted to [facility]. [facility]
He presents with near 48-hour history of nausea/vomiting/diarrhea and fever. He states his had similar illness that began 3 to 4 days ago, she is currently improving.
senior care reports fever tonight of 101 �F. He was given Tylenol approximately 1 and half hours ago. He was started on as needed Zofran and Imodium yesterday. At this point unclear as to his last dose of Zofran/Imodium. There has been no
report of hematemesis nor hematochezia. He does admit to intermittent mild crampy abdominal pain but currently denies pain.
He denies fall. He does admit to moderate generalized weakness and overall not feeling well.
According to long-term records. No recent antibiotic use.
Of note, norovirus is running rampant at [facility]. The dining mendez has been closed for the past week.
Past History
Past History
ED Past Medical History: Hypercholesterolemia, Psychiatric (Dementia) and Other (BPH)
ED Past Surgical History: Orthopedic (Hand surgery)
Social History
Tobacco: Non-smoker
Alcohol: None
Personal:
Living: long-term (Admitted to [facility] May 01, 2024 along with his .)
Employment: Retired
Family History
Family History: Other (Noncontributory)
Phy Exam
Physical Exam
Physical Exam:
GENERAL: 84-year-old gentleman appears his stated age, awake and alert, oriented x 2. Mildly ill in appearance. He is easily communicative, answering questions appropriately. Febrile 100 �F. Currently normotensive and without tachycardia.
EYE: pupils equal and reactive. anicteric
NECK: Supple, nontender, no meningismus, no significant adenopathy.
ENT: posterior pharynx is clear, oral mucosa is significantly dry. TM clear b/l, nares patent.
CARDIAC: Regular rate and rhythm. 3/6 holosystolic murmur left sternal border
LUNGS: Clear breath sounds bilaterally, no acute respiratory distress, no wheezes/rales/rhonchi
ABDOMEN: Soft, nondistended, mild generalized tenderness to palpation, no r/g, no cvat. No palpable masses. Mildly hyperactive bowel sounds.
NEUROLOGICAL: Alert and oriented x2, no focal neuro deficits.
SKIN: Moderately hot to touch and dry, normal color, skin intact. There is a lacy/macular, dry, slightly scaly rash bilateral anterolateral lower legs right leg greater than left.
MUSCULOSKELETAL: No C/C/E. peripheral pulses are full and equal b/l. No palpable tenderness.
PSYCH: Normal and appropriate interaction.
Course
Orders/Labs/Results
Orders:
Orders
05/26/24 23:00
Urinalysis Reflex To Culture Urgent
Date Specimen was Collected: 05/27/24
Time Specimen was Collected: 05:55
Norovirus by PCR Urgent
ALIZE Source: Feces/Stool
Specimen Description:
Stool Culture Urgent
ALIZE Source: Feces/Stool
Specimen Description:
0.9% Sodium Chloride 1000 ml [Nss] 1,000 ml IV BOLUS
05/26/24 23:05
Complete Blood Count/With Diff Urgent
Comprehensive Metabolic Panel Urgent
Lactic Acid Q4H
Comment: CANCEL 2nd LACTIC ACID IF 1st LACTIC ACID IS LESS THAN 2
Lipase Urgent
Magnesium Urgent
05/27/24 00:09
CT Abd/pelvis W Iv Cont Urgent
Comment:
Reason For Exam: gen abd pain, N/V/D, fever
05/27/24 03:07
Admit/Transfer Patient As Directed
Co-Sign Provider:
Level of Care: Observation services
Assign to:: Medical/Surgical
Physician / Group: hospitalist
Diagnosis: enteritis
05/27/24 03:08
PRN Pain Medication Management As Directed
May give lesser potent ordered pain med per pt: Yes
preference::
Protocol:: Medication orders for pain may be administered in a
manner that supports deferring to patient preference
when the pt is:
- Requesting an ordered lesser potent pain medication.
Least to most potent pain medications are defined
as: acetaminophen < NSAID < tramadol < opioids
(morphine, oxycodone, hydromorphone).
- Requesting a lesser dose of the same medication IF
ORDERED.
- Requesting a less intrusive route of administration
if both routes are prescribed by the provider (PO <
IV).
05/27/24 03:09
Code Status As Directed
Resuscitation Status: Do not resuscitate
Reached after discussion with pt or family/Healthcare POA: Yes
DNR Bracelet Application ONCE
05/27/24 03:13
C difficile Antigen & Toxins Urgent
ALIZE Source: Feces/Stool
Specimen Description:
05/27/24 04:29
COVID-19 Antigen Stat
Source: Nasal Swab
05/27/24 05:13
0.9% Sodium Chloride 1000 ml [Nss] 1,000 ml IV 75 mls/hr
Acetaminophen [Tylenol] 650 mg PO Q4HPRN PRN
Ondansetron Injectable [Zofran] 4 mg IV Q6HPRN PRN
05/27/24 05:13
Activity As Directed
Activity Level: With Assistance
Vital Signs As Directed
Frequency: Per unit guidelines
DX Deep Vein Thrombosis Video Routine
05/27/24 05:51
Basic Metabolic Panel IN AM
Complete Blood Count/No Diff IN AM
Magnesium IN AM
05/27/24 Breakfast
Regular
At Your Request: Non-Participating
05/27/24 08:00
Finasteride [Proscar] 5 mg PO DAILY
05/27/24 18:00
Enoxaparin Sodium [Lovenox] 40 mg SC QPM
05/27/24 22:00
Atorvastatin [Lipitor] 20 mg PO HS
Donepezil [Aricept] 5 mg PO HS
Abnormal Lab Results
05/26/24
23:05
WBC 12.4 H 10^3/uL
(4.8-10.8)
MCHC 32.4 L g/dL
(33.0-37.0)
Abs Immat Gran (auto) 0.1 H 10^3/uL
(0-0.05)
Absolute Neuts (auto) 11.8 H 10^3/uL
(1.4-6.5)
Absolute Lymphs (auto) 0.1 L 10^3/uL
(1.2-3.4)
Immature Gran % 0.6 H %
(0-0.5)
Neutrophils % 95.1 H %
(42.2-75.2)
Lymphocytes % 0.9 L %
(20.5-51.1)
BUN 28 H mg/dl
(9-20)
Glucose 156 H mg/dl
(70-99)
05/26/24 23:05
05/26/24 23:05
Vital Signs
Initial and Last Documented VS:
Initial Vital Signs
Temp Pulse Resp BP Pulse Ox
99.2 F 97 20 140/76 92
05/26/24 22:46 05/26/24 22:46 05/26/24 22:46 05/26/24 22:46 05/26/24 22:46
Last Documented Vital Signs
Temp Pulse Resp BP Pulse Ox
98.8 F 90 19 142/78 92
05/27/24 06:15 05/27/24 06:15 05/27/24 06:15 05/27/24 06:00 05/27/24 06:15
MDM/Problems Addressed
Differential Diagnosis Includes:
Concern for acute gastroenteritis, significant concern for acute norovirus as multiple residents of long-term with similar symptoms.
Other consideration is colitis, diverticulitis, less likely small bowel obstruction.
Patient does have history of BPH although does not appear to have prior history of UTIs. UTI is certainly a consideration however.
He is noted to be febrile but thus far hemodynamically stable. Concern for SIRS/sepsis.
Concern for dehydration, acute kidney injury, electrolyte derangement.
Labs are pending including lactic acid. Will initiate IV fluid resuscitation.
Chronic conditions affecting care: Psychiatric illness (Dementia) and Other (BPH)
*Radiology
Radiology exam reviewed: radiology read reviewed (CAT scan shows acute enteritis with mildly prominent loops of small bowel. No bowel obstruction.)
*Pulse Oximetry
Patient hypoxic: no
*EKG
Interpreted by ED Provider?: Yes
Interpretation: normal
Comparison EKG: no changes (Unchanged from previous April 2019)
Rate: normal
Rhythm: sinus
[place]: left axis deviation
Interval: long QT
QRS Pattern: normal QRS
Ischemia: no ischemia
*Health Careers Instructor Interpretation
Rate: normal
Interpretation: normal
Rhythm: sinus
*Critical Care Note
Total Time (30-74mins, 75-104mins- exclusive of procedures): Not Applicable
Update Note
Update Note:
Patient feeling mildly improved but continues with significant nausea, generalized crampy abdominal discomfort.
Labs show elevated white blood cell count of 16. Mild to moderate prerenal azotemia with BUN of 28.
Lactic acid normal at 1.4.
CAT scan shows acute enteritis.
Will continue IV fluids, antiemetics and admit to hospitalist service.
ED Attending Note
-
Portions of this chart may have been created with voice recognition software.� Occasional wrong word or��sound alike� substitutions may have occurred due to the inherent limitations of voice recognition software.
Discharge Plan
Departure
Patient Disposition: Admit
Admit to: Med/Surg
Admit to doctor: [facility]
Presentation/result/management discussed w/ accepting MD/DO: Hospitalist
Condition: Fair
Discharge Problem:
Acute gastroenteritis, SIRS (systemic inflammatory response syndrome)
Interventions
Interventions:
*Risk Screen - Suicide Last Done: 05/26/24 22:46
*General Assessment Last Done: 05/26/24 22:46
*Neglect/Abuse Screening Last Done: 05/26/24 22:46
*ED COVID-19 Vaccine History Last Done: 05/26/24 23:11
BQ-Ioiwsk-Pwuyzhximf Assessment Last Done: 05/26/24 23:11
[2024-05-26] MEDS: NSS 1000 IV (23:04)
[2024-05-26 23:14] LABS: % Basophils 0.2 % (0-2); % Immature Granulocytes 0.6 % (0-0.5); % Lymphocytes 0.9 % (20.5-51.1); % Monocytes 3.2 % (1.7-9.3); % Neutrophils 95.1 % (42.2-75.2); Absolute Immature Granulocytes 0.1 10^3/uL (0-0.05); Absolute Lymphocytes 0.1 10^3/uL (1.2-3.4); Absolute Monocytes 0.4 10^3/uL (0.1-0.6); Absolute Neutrophils 11.8 10^3/uL (1.4-6.5); Hematocrit 44.7 % (39.0-52.0); Hemoglobin 14.5 g/dL (13.0-18.0); Mean Corp Hgb Conc. 32.4 g/dL (33.0-37.0); Mean Corpuscular Hgb 30.4 pg (27.0-31.0); Mean Corpuscular Volume 93.7 fL (80.0-94.0); Mean Platelet Volume 9.8 fL (7.4-10.4); Nucleated Red Blood Cells % 0 % (-); Platelet Count 155 10^3/uL (130-400); Red Blood Cell Count 4.77 10^6/uL (4.70-6.10); Red Cell Dist. Width 14.5 % (11.5-14.5); White Blood Cell Count 12.4 10^3/uL (4.8-10.8)
[2024-05-26 23:26] LABS: Lactic Acid 1.4 mmol/L (0.7-2.0)
[2024-05-26 23:27] LABS: ALT (SGPT) 19 U/L (0-50); AST (SGOT) 22 U/L (17-59); Albumin 3.9 g/dl (3.5-5.0); Alkaline Phosphatase 60 U/L (38-126); Blood Urea Nitrogen 28 mg/dl (9-20); Calcium 9.2 mg/dl (8.4-10.2); Carbon Dioxide 28 mmol/L (22-30); Chloride 102 mmol/L (98-107); Glucose 156 mg/dl (70-99); Lipase 85 U/L (23-300); Magnesium 1.8 mg/dl (1.6-2.3); Potassium 4.1 mmol/L (3.5-5.1); Sodium 138 mmol/L (135-145); Total Bilirubin 0.6 mg/dl (0.2-1.3); Total Protein 6.4 g/dl (6.3-8.2); eGFR > 60.00
[2024-05-27] VITALS (11 sets, daily range): BP systolic 133–162; BP diastolic 69–86; BMI 21.0
--- NOTE | 2024-05-27 02:58 | HPS.HSE ---
Family Physician
-
Family Physician: Jayson Escobedo MD
Chief Complaint
-
Nausea vomiting and diarrhea
History of Present Illness
This is an 84-year-old male with history of progressive dementia, hyperlipidemia and BPH presenting to the emergency department from nursing facility with approximately 2 days of nausea vomiting and diarrhea.
Patient currently lives with spouse at [facility] and has half-way. There is been having about 48 hours of nausea vomiting diarrhea. He reports that his had similar illness 2 to 3 days earlier. He has been treated with Zofran and Imodium
since yesterday for his symptoms. He had a fever of 101 �F today. Given Tylenol and then sent to the emergency department. He has been no hematemesis or hematochezia or melena. Patient currently denies abdominal pain. Is unable to state exactly
when he last had vomiting or diarrheal episode. He has not been on any recent antibiotics.
In the emergency department he had a temp of 100. Pulse was 91. Blood pressure was 139/74. He was at 95% on room air. He had a white count of 12.4 with normal hemoglobin and platelet. Electrolytes BUN/creatinine and LFTs as well as lipase were
all within normal limits.
CT of the abdomen and pelvis was unremarkable showing enteritis without obstruction.
Medical History
Past Medical History
Past Medical History: Reports Dementia and Hypercholesterolemia
Additional Past Medical History:
BPH
Past Surgical History: Reports Other
Social History
Tobacco: Non-smoker
Alcohol: None
Drug: None
Personal:
Living: Halfway
Employment: Retired
Family History
Family History: Not pertinent
Allergies / Home Medications
Allergies reflects when Allergies were last updated in [facility].
Home Medications with original date entered in [facility]
Allergy/Medication List:
Allergies
Allergy/AdvReac Type Severity Reaction Status Date / Time
aspirin Allergy Unknown Verified 05/26/24 23:06
Home Medications
donepezil 5 mg tablet 5 mg PO HS cognition/memory 04/26/24
finasteride 5 mg tablet 5 mg PO DAILY Urinary Issue 04/26/24
Research Medication 1 tab PO BID 04/28/24
atorvastatin 20 mg tablet 20 mg PO HS 05/26/24
bisacodyl 10 mg rectal suppository (Dulcolax (bisacodyl)) 10 mg NV DAILY PRN constipation 05/26/24
loperamide 2 mg capsule 2 mg PO Q6H PRN loose stools 05/26/24
ondansetron 4 mg disintegrating tablet 4 mg PO Q6H PRN nausea 05/26/24
sodium phosphates 19 gram-7 gram/118 mL enema (Fleet Enema) ml NV PRN PRN constipation 05/26/24
acetaminophen 325 mg tablet (Tylenol) 650 mg PO Q6H PRN fever 05/27/24
polyethylene glycol 3350 17 gram oral powder packet 17 g PO BID PRN constipation 05/27/24
Review of Systems
-
History Source: Patient
Constitutional: Reports Fever
EENT: Reports No Symptoms
Respiratory: Reports No Symptoms
Cardiac: Reports No Symptoms
Abdomen/GI: Reports Nausea, Vomiting and Diarrhea
: Reports No Symptoms
Musculoskeletal: Reports No Symptoms
Skin: Reports No Symptoms
Neurological: Reports No Symptoms
Endocrine: Reports No Symptoms
Hematologic/Lymphatic: Reports No Symptoms
Psych: Reports No Symptoms
Physical Exam
Vital Signs
Vital Signs
Temp Pulse Resp BP Pulse Ox
100.0 F 102 27 139/73 96
05/27/24 01:33 05/27/24 02:52 05/27/24 02:52 05/27/24 02:52 05/27/24 02:30
Physical Exam
General: Well Developed, Well Nourished and No Apparent Distress
HEENT: NormoCephalic, Atraumatic, PERRLA and No Ptosis
Respiratory: Clear
Cardiac: S1/S2 and Regular Rhythm
Breast: Deferred by me
GI: Soft, Non Tender, Non Distended and Normal Bowel Sounds
Rectal: Deferred by Provider
Genito-urinary: Deferred by me
Musculoskeletal: No Clubbing, No Cyanosis and No Edema
Skin: Warm
Neuro: Alert and Oriented (to person and place)
Hematologic/Lymphatic: No Lymphadenopathy
Psych: Calm
Laboratory Results
-
05/26/24 23:05
05/26/24 23:05
Laboratory Results
Lactic Acid Cancelled 05/27/24 03:00
Total Bilirubin 0.6 mg/dl (0.2-1.3) 05/26/24 23:05
AST 22 U/L (17-59) 05/26/24 23:05
ALT 19 U/L (0-50) 05/26/24 23:05
Alkaline Phosphatase 60 U/L (38-126) 05/26/24 23:05
Lipase 85 U/L (23-300) 05/26/24 23:05
Data Reviewed
-
CT Scan: Report Reviewed by me
Lab Data: Labs Reviewed by me
Old Records: Reviewed
Impression/Plan
-
IMPRESSION:
Patient with 2 days of nausea vomiting and diarrhea as well as intermittent abdominal pain. He has a sick contact and spouse who had symptoms 2 days previous to his and is currently improving. He also lives at a facility which had a outbreak of
rotavirus with closure of the dining mendez. Symptoms consistent with acute gastroenteritis. Patient is nontoxic-appearing but febrile. Mild leukocytosis with otherwise normal labs. Abdominal exam is benign. CT of the abdomen and pelvis shows no
acute intra-abdominal process except for some enteritis.
PLAN:
Enteritis - Likely viral with recent sick contacts. Mild dehydration. Fever and leukocytosis raises possibility of colitis but patient has not been on any abx recently. No diarrhea or vomiting here sofar
- admit to med/surg observation
- check stool culture, cdiff and norovirus
- regular diet as tolerated
- gentle hydration, antiemetics, antipyretics for now pending results
Fever - Likely from enteritis, no infiltrate at lung base
- u/a pending, hold off on blood cultures for now
- check covid
- stool studies as above
- cxr to eval aspiration
Dementia - A& O x 2. Recent accelerated progression and now lives at the half-way
- continue donepizil
- continue finatsteride
- continue statin
DVT PPx - lovenox sq
Code status - DNR
[2024-05-27 04:50] LABS: COVID-19 Antigen Negative (Negative)
[2024-05-27] MEDS: NSS 1000 IV (05:51)
[2024-05-27 06:00] LABS: Hematocrit 40.6 % (39.0-52.0); Hemoglobin 13.7 g/dL (13.0-18.0); Mean Corp Hgb Conc. 33.7 g/dL (33.0-37.0); Mean Corpuscular Hgb 30.9 pg (27.0-31.0); Mean Corpuscular Volume 91.6 fL (80.0-94.0); Mean Platelet Volume 9.7 fL (7.4-10.4); Platelet Count 149 10^3/uL (130-400); Red Blood Cell Count 4.43 10^6/uL (4.70-6.10); Red Cell Dist. Width 14.6 % (11.5-14.5); White Blood Cell Count 16.3 10^3/uL (4.8-10.8)
[2024-05-27 06:18] LABS: Blood Urea Nitrogen 25 mg/dl (9-20); Calcium 8.7 mg/dl (8.4-10.2); Carbon Dioxide 26 mmol/L (22-30); Chloride 105 mmol/L (98-107); Glucose 138 mg/dl (70-99); Magnesium 1.8 mg/dl (1.6-2.3); Potassium 3.9 mmol/L (3.5-5.1); Sodium 138 mmol/L (135-145); eGFR > 60.00
[2024-05-27 06:26] LABS: Urine Albumin Trace (Neg - Trace); Urine Bilirubin Negative (Negative); Urine Character Clear (Clear); Urine Color Yellow; Urine Glucose Negative (Negative); Urine Ketone Negative (Negative); Urine Leukocyte Negative (Negative); Urine Nitrite Negative (Negative); Urine Occult Blood 2+ (Negative); Urine Urobilinogen Negative (Neg - 1+)
[2024-05-27 08:39] LABS: Urine Squamous Cell 0-2 /LPF (Few)
[2024-05-27 08:40] LABS: Urine White Cell 0-2 /HPF (0-5)
[2024-05-27] MEDS: PROSCAR 5 MG PO (09:37)
--- NOTE | 2024-05-27 10:12 | CM ---
Chart reviewed. Patient here for enteritis. Patient lives at home with his in home. He is retired and independent. No +SDOHs. He owns a wheelchair. He does not drive. He pays a '3rd constitution party' to provide transportation to him. He has an active
PCP and pharmacy.
ANTICIPATED DISCHARGE: Discharge home to , when medically cleared.
[2024-05-27 11:35] LABS: Procalcitonin 3.64 ng/ml (0.0-0.25)
--- NOTE | 2024-05-27 12:55 | W.PN.HOSP.TC ---
Today's Communication/Plan
-
Monitor vital signs see plan
Start antibiotics
Add probiotics
gentle hydration
stool studies if diarrhea
blood cx
Nonbillable note
Assessment / Plan
Assessment / Plan
General: Well Developed, Well Nourished and No Apparent Distress
HEENT: NormoCephalic, Atraumatic, PERRLA and No Ptosis
Respiratory: Clear
Cardiac: S1/S2 and Regular Rhythm
Breast: Deferred by me
GI: Soft, Non Tender, Non Distended and Normal Bowel Sounds
Musculoskeletal:No Edema
Neuro: Alert and Oriented (to person and place)
Psych: Calm
Enteritis - Likely viral with recent sick contacts. Mild dehydration.
CT abdomen/pelvis consistent with mild enteritis. Also shows groundglass opacity suggestive of pneumonia. Pro-Oscar positive. Will start zosyn for now. Add probiotics. Check MRSA screen. speech eval
Sepsis likely multifactorial from enteritis and pneumonia
Check blood culture
- check stool culture, cdiff and norovirus; no diarrhea currently per patient
- regular diet as tolerated
- gentle hydration
Fever - Likely from enteritis, no infiltrate at lung base
- u/a pending, hold off on blood cultures for now
- check covid
- stool studies as above
- cxr to eval aspiration
Dementia - A& O x 2. Recent accelerated progression and now lives at the residential
- continue donepizil
- continue finatsteride
- continue statin
DVT PPx - lovenox sq
Code status - DNR
Anticipated Discharge: 24 - 48 hours
Subjective/Interval History
-
Date of Service: May 27, 2024
denies pain
Objective Data
-
Labs:
Laboratory Results
05/27/24
05:51
WBC 16.3 H
Hgb 13.7
Hct 40.6
Plt Count 149
Sodium 138
Potassium 3.9
Chloride 105
Carbon Dioxide 26
BUN 25 H
Creatinine 0.7
Glucose 138 H
Calcium 8.7
Vital Signs:
Vital Signs
Temp Pulse Resp BP Pulse Ox
99 F 90 19 133/69 95
05/27/24 12:11 05/27/24 06:15 05/27/24 06:15 05/27/24 12:11 05/27/24 12:11
[2024-05-27] MEDS: ZOSYN 50 IV ×2 (14:23→20:38)
[2024-05-27] MEDS: VISBIOME 1 CAP PO (14:23)
[2024-05-27] MEDS: LOVENOX 40 MG SC (17:43)
[2024-05-27] MEDS: LIPITOR 20 MG PO (21:07)
[2024-05-27] MEDS: ARICEPT 5 MG PO (21:07)
[2024-05-28] MEDS: NSS 1000 IV (00:37)
[2024-05-28] MEDS: ZOSYN 50 IV ×4 (01:05→21:37)
[2024-05-28 07:16] VITALS: BP 146/82
[2024-05-28] MEDS: VISBIOME 1 CAP PO (07:27)
[2024-05-28] MEDS: PROSCAR 5 MG PO (07:27)
[2024-05-28 08:44] LABS: % Basophils 0.1 % (0-2); % Eosinophils 0.4 % (0-6); % Immature Granulocytes 0.4 % (0-0.5); % Lymphocytes 5.8 % (20.5-51.1); % Monocytes 7.5 % (1.7-9.3); % Neutrophils 85.8 % (42.2-75.2); Absolute Lymphocytes 0.6 10^3/uL (1.2-3.4); Absolute Monocytes 0.8 10^3/uL (0.1-0.6); Absolute Neutrophils 8.8 10^3/uL (1.4-6.5); Hematocrit 37.5 % (39.0-52.0); Hemoglobin 12.4 g/dL (13.0-18.0); Mean Corp Hgb Conc. 33.1 g/dL (33.0-37.0); Mean Corpuscular Hgb 31.1 pg (27.0-31.0); Mean Platelet Volume 10.3 fL (7.4-10.4); Nucleated Red Blood Cells % 0 % (-); Platelet Count 132 10^3/uL (130-400); Red Blood Cell Count 3.99 10^6/uL (4.70-6.10); Red Cell Dist. Width 14.8 % (11.5-14.5); White Blood Cell Count 10.3 10^3/uL (4.8-10.8)
[2024-05-28 10:09] LABS: ALT (SGPT) 16 U/L (0-50); AST (SGOT) 22 U/L (17-59); Alkaline Phosphatase 62 U/L (38-126); Blood Urea Nitrogen 21 mg/dl (9-20); Calcium 8.5 mg/dl (8.4-10.2); Carbon Dioxide 29 mmol/L (22-30); Chloride 106 mmol/L (98-107); Estimated Creatinine Clearance 65 ml/min; Glucose 94 mg/dl (70-99); Potassium 3.6 mmol/L (3.5-5.1); Sodium 139 mmol/L (135-145); Total Bilirubin 0.3 mg/dl (0.2-1.3); Total Protein 5.5 g/dl (6.3-8.2); eGFR > 60.00
--- NOTE | 2024-05-28 12:06 | PTOTSP ---
Speech Therapy Evaluation:
Pt exhibits clinical signs of oropharyngeal dysphagia, likely chronic in nature related to history of dementia, which has recently progressed and required [facility] placement. Pt demonstrated no overt s/sx of aspiration across PO trials
consisting of thin liquids via cup/straw or regular solids. Abdomen/Pelvis CT suggestive of PNA versus atypical infection. WBC WNL.
Recommend:
1. Continue IDDSI Level 7 (regular) solids and thin liquids
2. Medications whole with thins
3. General aspiration/reflux precautions
4. Monitor chest imaging, respiratory status, and clinical presentation.
5. HEAD LOFT WORKER to follow to monitor tolerance of current diet level pending hospitalization
--- NOTE | 2024-05-28 12:09 | W.PN.HOSP.TC ---
Today's Communication/Plan
-
see A/P
Assessment / Plan
Assessment / Plan
HPI: Patient with 2 days h/o nausea, vomiting, diarrhea and intermittent abdominal pain. He lives at a facility which had an outbreak of rotavirus with closure of the dining mendez.
Symptoms consistent with acute gastroenteritis. Patient is nontoxic-appearing but febrile. CT of the abdomen and pelvis shows no acute intra-abdominal process except for some enteritis.
A/P:
# Sepsis POA likely multifactorial from enteritis and possible bacterial pneumonia
# Enteritis, likely viral with recent sick contacts.
# Mild dehydration.
CT abdomen/pelvis consistent with mild enteritis. Also shows groundglass opacity suggestive of pneumonia.
CXR No acute cardiopulmonary process.
Procal positive at 3.64.
Blood culture negative
Follow MRSA screen.
Cont empiric Zosyn x5 days with probiotics.
Pt was cleared to cont regular and thin liquid per SPL eval.
Stool culture, cdiff and norovirus ordered but no diarrhea currently per patient
# Dementia, stable
AOx 2.
Recent accelerated progression and now lives at the alf
continue donepizil
continue finatsteride
continue statin
DVT PPx - lovenox sq
Code status - DNR
DW RN
Anticipated Discharge: 24 - 48 hours
Subjective/Interval History
-
Date of Service: May 28, 2024
Objective Data
-
Labs:
Laboratory Results
05/28/24
07:21
WBC 10.3
Hgb 12.4 L
Hct 37.5 L
Plt Count 132
Sodium 139
Potassium 3.6
Chloride 106
Carbon Dioxide 29
BUN 21 H
Creatinine 0.8
Glucose 94
Calcium 8.5
Total Bilirubin 0.3
AST 22
ALT 16
Alkaline Phosphatase 62
Vital Signs:
Vital Signs
Temp Pulse Resp BP Pulse Ox
36.5 C 72 16 146/82 98
05/28/24 07:16 05/28/24 07:16 05/28/24 07:16 05/28/24 07:16 05/28/24 09:00
I&O
05/27/24 05/28/24 05/29/24
06:59 06:59 06:59
Intake Total 3000 / 3000
Output Total 450 / 450
Balance 2550 / 2550
Review of Systems
-
History Source: Patient
Respiratory: Denies Cough or Trouble Breathing
Physical Exam
-
General: Well Developed, No Apparent Distress, Comfortable and Conversant
HEENT: Normocephalic, Atraumatic and Moist Mucous Membranes
Respiratory: Clear to Auscultation and Non Labored Respirations; Negative Accessory Resp Muscle Use
Cardiac: Regular Rhythm and S1/S2
GI: Soft, Nontender, Nondistended and Other (chronic umbilical hernia )
Musculoskeletal: No Clubbing, No Cyanosis and No Edema
Neuro: Awake and Alert
Psych: Calm
Data Reviewed
-
CT Scan: Report Reviewed by me
Labs: Labs Reviewed by me
--- NOTE | 2024-05-28 14:09 | CM ---
Addendum entered by Latonia Joyner 05/28/24 14:31:
[facility]
Addendum entered by Latonia Joyner 05/28/24 14:22:
Spoke with Shelley from [facility].
States patient resides in their LTC w/.
PT/OT to eval
PLAN: [facility]
Report #: [phone]
Fax #: [phone]
Original Note:
tt from [facility] - patient is now IP
IMM reviewed w/MUKUL Leach. In chart
[2024-05-28 15:39] VITALS: BP 163/88
[2024-05-28] MEDS: LOVENOX 40 MG SC (17:21)
[2024-05-28] MEDS: ARICEPT 5 MG PO (21:37)
[2024-05-28] MEDS: LIPITOR 20 MG PO (21:38)
[2024-05-28 23:15] VITALS: BP 148/82
[2024-05-29] MEDS: ZOSYN 50 IV ×2 (02:50→08:44)
[2024-05-29 07:05] VITALS: BP 169/85
[2024-05-29] MEDS: VISBIOME 1 CAP PO (08:44)
[2024-05-29] MEDS: PROSCAR 5 MG PO (08:44)
[2024-05-29 08:49] LABS: Hematocrit 39.2 % (39.0-52.0); Hemoglobin 13.2 g/dL (13.0-18.0); Mean Corp Hgb Conc. 33.7 g/dL (33.0-37.0); Mean Corpuscular Hgb 30.8 pg (27.0-31.0); Mean Corpuscular Volume 91.6 fL (80.0-94.0); Mean Platelet Volume 9.8 fL (7.4-10.4); Platelet Count 138 10^3/uL (130-400); Red Blood Cell Count 4.28 10^6/uL (4.70-6.10); Red Cell Dist. Width 14.1 % (11.5-14.5); White Blood Cell Count 8.5 10^3/uL (4.8-10.8)
[2024-05-29 09:12] LABS: Blood Urea Nitrogen 14 mg/dl (9-20); Calcium 8.5 mg/dl (8.4-10.2); Carbon Dioxide 30 mmol/L (22-30); Chloride 99 mmol/L (98-107); Estimated Creatinine Clearance 65 ml/min; Glucose 94 mg/dl (70-99); Potassium 3.4 mmol/L (3.5-5.1); Sodium 135 mmol/L (135-145); eGFR > 60.00
[2024-05-29 09:45] VITALS: BP 134/73; PULSE 67; O2SAT 94
[2024-05-29 10:07] VITALS: BP 134/73; PULSE 70; O2SAT 94
--- NOTE | 2024-05-29 10:24 | W.PN.HOSP.TC ---
Addendum entered and electronically signed by Sujey Olivas MD 05/29/24 13:04:
total DC time 38 min
Original Note:
Today's Communication/Plan
-
see A/P
Assessment / Plan
Assessment / Plan
HPI: Patient with 2 days h/o nausea, vomiting, diarrhea and intermittent abdominal pain. He lives at a facility which had an outbreak of rotavirus with closure of the dining mendez.
Symptoms consistent with acute gastroenteritis. Patient is nontoxic-appearing but febrile. CT of the abdomen and pelvis shows no acute intra-abdominal process except for some enteritis.
A/P:
# Sepsis POA likely multifactorial from enteritis and possible bacterial pneumonia
# Enteritis, likely viral with recent sick contacts.
# Mild dehydration.
CT abdomen/pelvis consistent with mild enteritis. Also shows groundglass opacity suggestive of pneumonia.
CXR No acute cardiopulmonary process.
Procal positive at 3.64.
Blood culture negative. MRSA screen negative.
empiric Zosyn can be switched to Augmentin to complete course (x5 days with probiotics).
Pt was cleared to cont regular and thin liquid per SPL eval.
No diarrhea per pt and RN
# Dementia, stable
AOx 2.
Recent accelerated progression and now lives at the [facility]
continue donepizil
continue statin
# Hypokalemia
replete
DVT PPx - lovenox sq
Code status - DNR
Dispo: PT recc SNF
DW RN
DW CM
updated POA nephew on the phone
Anticipated Discharge: Within 24 hours
Subjective/Interval History
-
Date of Service: May 29, 2024
Objective Data
-
Labs:
Laboratory Results
05/29/24
08:12
WBC 8.5
Hgb 13.2
Hct 39.2
Plt Count 138
Sodium 135
Potassium 3.4 L
Chloride 99
Carbon Dioxide 30
BUN 14
Creatinine 0.8
Glucose 94
Calcium 8.5
Vital Signs:
Vital Signs
Temp Pulse Resp BP Pulse Ox
37.1 C 65 16 169/85 95
05/29/24 07:05 05/29/24 07:05 05/29/24 07:05 05/29/24 07:05 05/29/24 10:08
I&O
05/28/24 05/29/24 05/30/24
06:59 06:59 06:59
Intake Total 3000 / 3000 2190 / 2190
Output Total 450 / 450 2175 / 2175
Balance 2550 / 2550 15 / 15
Review of Systems
-
History Source: Patient
Respiratory: Denies Cough or Trouble Breathing
Abdomen/GI: Denies Diarrhea
Physical Exam
-
General: Well Developed, No Apparent Distress, Comfortable and Conversant
HEENT: Normocephalic, Atraumatic and Moist Mucous Membranes
Respiratory: Clear to Auscultation and Non Labored Respirations; Negative Accessory Resp Muscle Use
Cardiac: Regular Rhythm and S1/S2
GI: Soft, Nontender, Nondistended and Other (chronic umbilical hernia )
Musculoskeletal: No Clubbing, No Cyanosis and No Edema
Neuro: Awake and Alert
Psych: Calm
Data Reviewed
-
CT Scan: Report Reviewed by me
Labs: Labs Reviewed by me
[2024-05-29] MEDS: KCL 40 MEQ PO (10:57)
--- NOTE | 2024-05-29 11:11 | CM ---
Addendum entered by Latonia Joyner 05/29/24 11:45:
1700 TRANSPORT TIME TODAY - SHELLEY FROM [place] NOTIFIED
Original Note:
Patient seen at bedside.
tt from hospitalist regarding d/c
Spoke with Shelley at [facility] & updated
Can accept patient today
Called [facility] & updated.
transportation forms on chart
PLAN: [facility]
Report #: [phone]
Fax #: [phone]
transportation forms on chart-time TBD
[2024-05-29 12:33] LABS: Magnesium 1.8 mg/dl (1.6-2.3)
--- NOTE | 2024-05-29 12:53 | W.DCSUMMARY ---
Discharge Summary
Discharge Data
Date of Admission: 05/28/24
Date of Discharge: 05/29/24
-
Pending Results: No
Hospital Course
Principal Diagnosis:
Sepsis likely multifactorial from enteritis and possible bacterial pneumonia
Chronic Diagnoses:�
Dementia, stable. AOx 2.
Consultations:�
None
Procedures:�
None
Clinical course:�
This is a 84-year-old male, with past medical history as stated above, who presented with 2 days h/o nausea, vomiting, diarrhea and intermittent abdominal pain. He lives at a facility which had an outbreak of rotavirus with closure of the dining
mendez.
Problem 1:
Sepsis likely multifactorial from enteritis and possible bacterial pneumonia.
Enteritis, likely viral with recent sick contacts.
His CT abdomen/pelvis noted mild enteritis, and also groundglass opacity suggestive of pneumonia.
His CXR showed no acute cardiopulmonary process.
His Procal was high at 3.64. His blood culture was negative, and MRSA screen was negative.
He was treated with Zosyn while in the hospital and was discharged with Augmentin to complete x5 days' course (with probiotics).
He was cleared to cont regular and thin liquid diet per speech eval.
He has had no further diarrhea at the time of discharge.
He was discharged back to [facility] under halfway.
As for the rest of his medical problems, they were stable during his hospital stay.
Discharge Plan
-
Patient Disposition: [facility]
Discharge Diagnosis/Procedures: Likely viral enteritis with recent sick contacts;
possible bacterial pneumonia
Condition: Fair
Diet: As tolerated
Activity: As tolerated
Driving Restrictions: No driving
Referrals:
Jayson Escobedo MD [Family Provider] - in less than 1 week
Additional Discharge Medication Instructions: Continue Augmentin for 2 more days
Prescriptions:
New
amoxicillin-pot clavulanate 875-125 mg Tablet
1 tab PO Q12 2 Days Qty: 4 0RF
Probiotic 15 billion cell capsule, sprinkle
1 cap PO DAILY 5 Days Qty: 5 0RF
Continued
donepezil 5 mg Tablet
5 mg PO HS
finasteride 5 mg Tablet
5 mg PO DAILY
atorvastatin 20 mg Tablet
20 mg PO HS
loperamide 2 mg Capsule
2 mg PO Q6HPRN PRN (Reason: loose stools)
Fleet Enema 19-7 gram/118 mL Enema
118 ml MS PRN PRN (Reason: constipation)
Rx Instructions:
If no BM times 4 days, give on 7-3 shift
ondansetron 4 mg Tablet,Disintegrating
4 mg PO Q6HPRN PRN (Reason: nausea, vomiting)
polyethylene glycol 3350 17 gram powder in packet
17 g PO BIDPRN PRN (Reason: constipation)
acetaminophen [Tylenol] 325 mg Tablet
650 mg PO Q6HPRN PRN (Reason: fever, mild pain)
Rx Instructions:
For fever and mild pain
magnesium hydroxide [Milk of Magnesia] 400 mg/5 mL Suspension
2,400 mg PO HSPRN PRN (Reason: constipation)
Rx Instructions:
if no BM x 2 days
bisacodyl [Dulcolax (bisacodyl)] 10 mg Suppository
10 mg MS DAILYPRN PRN (Reason: constipation)
Rx Instructions:
if no BM x 3 days, give at 0600
Discharge Orders:
Discharge Patient (As Directed); Ordered 05/29/24
Ordered By: Sujey Olivas
Discharge Date and Time
Print Language: SYRIAC
[2024-05-29 13:30] VITALS: BP 150/82
== END 2024-05-29 15:05 | DRG 871 ==
LOC: 2 NORTH 12:08
PROVIDERS: Internal Medicine; ADMITTING PHYSICIAN Internal Medicine; ATTENDING PHYSICIAN Internal Medicine; EMERGENCY PHYSICIAN Emergency Medicine; FAMILY PHYSICIAN Family Medicine
DX: A41.9 Sepsis, unspecified organism (principal); J15.9 Unspecified bacterial pneumonia; A08.4 Viral intestinal infection, unspecified; E78.00 Pure hypercholesterolemia, unspecified; E86.0 Dehydration; F03.90 Unspecified dementia, unspecified severity, without behavioral disturbance, psychotic disturbance, mood disturbance, and anxiety; N40.0 Benign prostatic hyperplasia without lower urinary tract symptoms; E87.6 Hypokalemia; Z66 Do not resuscitate; Z88.6 Allergy status to analgesic agent; Z79.899 Other long term (current) drug therapy; Z20.822 Contact with and (suspected) exposure to COVID-19
CPT/HCPCS: 74177; 80048; 80053; 81003; 81015; 83605; 83690; 83735; 84145; 85025; 85027; 87040; 87070; 87811; 92610; 96360; 97116; 97162; 97166; 99285; Q9967

== ENCOUNTER → 2024-05-31 09:41 | Outpatient (REF) | payer MEDICARE, OTHER, SELFPAY ==
[2024-05-31 11:04] LABS: Hematocrit 37.2 % (39.0-52.0); Hemoglobin 12.8 g/dL (13.0-18.0); Mean Corp Hgb Conc. 34.4 g/dL (33.0-37.0); Mean Corpuscular Hgb 30.9 pg (27.0-31.0); Mean Corpuscular Volume 89.9 fL (80.0-94.0); Platelet Count 146 10^3/uL (130-400); Red Blood Cell Count 4.14 10^6/uL (4.70-6.10); White Blood Cell Count 7.2 10^3/uL (4.8-10.8)
[2024-05-31 11:12] LABS: ALT (SGPT) 19 U/L (0-50); AST (SGOT) 26 U/L (17-59); Albumin 3.2 g/dl (3.5-5.0); Alkaline Phosphatase 50 U/L (38-126); Blood Urea Nitrogen 18 mg/dl (9-20); Calcium 8.6 mg/dl (8.4-10.2); Carbon Dioxide 28 mmol/L (22-30); Chloride 102 mmol/L (98-107); Glucose 92 mg/dl (70-99); Magnesium 2.2 mg/dl (1.6-2.3); Potassium 4.1 mmol/L (3.5-5.1); Sodium 137 mmol/L (135-145); Total Bilirubin 0.6 mg/dl (0.2-1.3); Total Protein 5.7 g/dl (6.3-8.2); eGFR > 60.00
== END ==
LOC: OLABP 09:41
PROVIDERS: ATTENDING PHYSICIAN Family Medicine
DX: E78.5 Hyperlipidemia, unspecified (principal); R63.4 Abnormal weight loss; I25.2 Old myocardial infarction; F03.90 Unspecified dementia, unspecified severity, without behavioral disturbance, psychotic disturbance, mood disturbance, and anxiety
CPT/HCPCS: 36415; 80053; 83735; 85027

== ENCOUNTER → 2024-06-04 15:11 | Outpatient (REF) | payer OTHER, MEDICARE, SELFPAY ==
[2024-06-04 17:01] LABS: ALT (SGPT) 26 U/L (0-50); AST (SGOT) 25 U/L (17-59); Albumin 3.2 g/dl (3.5-5.0); Alkaline Phosphatase 61 U/L (38-126); Blood Urea Nitrogen 21 mg/dl (9-20); Calcium 8.6 mg/dl (8.4-10.2); Carbon Dioxide 30 mmol/L (22-30); Chloride 101 mmol/L (98-107); Glucose 94 mg/dl (70-99); Hematocrit 36.9 % (39.0-52.0); Magnesium 2.2 mg/dl (1.6-2.3); Mean Corp Hgb Conc. 32.5 g/dL (33.0-37.0); Mean Corpuscular Hgb 30.5 pg (27.0-31.0); Mean Corpuscular Volume 93.9 fL (80.0-94.0); Mean Platelet Volume 9.8 fL (7.4-10.4); Platelet Count 229 10^3/uL (130-400); Potassium 4.1 mmol/L (3.5-5.1); Red Blood Cell Count 3.93 10^6/uL (4.70-6.10); Red Cell Dist. Width 14.2 % (11.5-14.5); Sodium 136 mmol/L (135-145); Total Bilirubin 0.4 mg/dl (0.2-1.3); Total Protein 5.7 g/dl (6.3-8.2); White Blood Cell Count 7.8 10^3/uL (4.8-10.8); eGFR > 60.00
== END ==
LOC: OLABWHC 15:11
PROVIDERS: ATTENDING PHYSICIAN Family Medicine
DX: A08.4 Viral intestinal infection, unspecified (principal); E78.5 Hyperlipidemia, unspecified; J18.9 Pneumonia, unspecified organism
CPT/HCPCS: 36415; 80053; 83735; 85027

== ENCOUNTER 2024-06-12 19:27 | Emergency (ER) | payer OTHER, MEDICARE, SELFPAY ==
[2024-06-12 19:30] VITALS: BP 167/84
[2024-06-12 19:32] VITALS: BP 167/84
--- NOTE | 2024-06-12 19:54 | ED.GENMED ---
History of Present Illness
General
Chief Complaint: Fall
Source: patient
Exam Limitations: none
Time Seen by Provider: 06/12/24 19:29
History of Present Illness
History of Present Illness:
This is a 84 year old male that comes in with c/o fall. States that he was taking a shower by himself which he does. States that he was drying off and he fell into the wall. Denies any LOC or blood thinners. State that he even got him self up.
Denies any fever, chills, chest pain, SOB, abd pain, nausea, vomiting, diarrhea, headache, dizziness, urinary burning.
Past History
Past History
ED Past Medical History: Hypercholesterolemia, HI, Psychiatric (Anxiety) and Other (BPH, Dementia Slight, Glaucoma, PNA)
ED Past Surgical History: Orthopedic (Hand surgery)
Social History
Tobacco: Former smoker
Alcohol: None
Personal:
Living: shelter (Admitted to [facility] May 01, 2024 along with his .)
Employment: Retired
Family History
Family History: Other (Noncontributory)
Review of Systems
Review of Systems
All Other Systems: ROS reviewed and negative except as documented in HPI and ROS
Constitutional: Reports no symptoms; Denies fever or chills
EENT: Reports no symptoms
Respiratory: Reports no symptoms
Cardiac: Reports no symptoms; Denies chest pain
ABD/GI: Reports no symptoms; Denies abdominal pain, nausea, vomiting or diarrhea
: Reports no symptoms; Denies dysuria, frequency or urgency
Musculoskeletal: Reports joint pain (left shoulder tenderness)
Skin: Reports other (Abrasion left sided of head with hematoma)
Neurological: Reports no symptoms; Denies dizzy or headache
Psychiatric: Reports no symptoms
Phy Exam
General Physical Exam
General Presentation: no apparent distress
General age: appears stated age
General Skin: warm and dry
General Habitus: elderly
General Mental: usual mental status
General Hydration: appears well hydrated
ENT Exam
ENT Exam: TM's normal, pharynx normal and neck supple
Eye Exam
Eye Exam: EOMI
Cardiovascular Exam
Cardiovascular Exam: regular rate/rhythm, normal peripheral pulses and other (Murmur)
Pulmonary Exam
Pulmonary Exam: lungs clear, no respiratory distress, no rales, chest non tender, no crackles, no rhonchi, no wheezing and no cough
Gastrointestinal Exam
Gastrointestinal Exam: normal bowel sounds, non tender, soft, no organomegaly, no pulsatile mass and non distended
Musculoskeletal Exam
Musculoskeletal Exam: full ROM, no edema and other (negative cervical neck tenderness or spinal tenderness with palpation. Patient can abduct and cross over left arm. Negative discomfort with flexion knee's inversion or eversion. )
Skin Exam
Skin Exam: normal color, warm/dry, no petechia and other (Abrasion left forehead with hematoma , Abrasion left shoulder)
Psychiatric Exam
Psychiatric Exam: normal mood/affect
Course
Orders/Labs/Results
Orders:
Orders
06/12/24 19:34
CT Cervical Spine W/o Iv Contr Urgent
Comment:
Reason For Exam: fall
CT Head W/o Iv Contrast Urgent
Comment:
Reason For Exam: fall
Shoulder, Left, Trauma CR [CR Shoulder, Trauma - Left] Urgent
Comment:
Reason For Exam: fall
Vital Signs
Initial and Last Documented VS:
Initial Vital Signs
BP
167/84
06/12/24 19:30
Last Documented Vital Signs
Temp Pulse Resp BP Pulse Ox
98.5 F 75 16 128/73 97
06/12/24 19:32 06/13/24 00:35 06/13/24 00:35 06/13/24 00:35 06/13/24 00:35
MDM/Problems Addressed
Differential Diagnosis Includes:
Abrasions, Hematoma. Subdural hematoma
MDM/Problems Addressed:
This is a 84 year old male that comes in by ambulance with c/o fall. States that he was drying off after his shower and hit the wall. States that he was able to get himself up. Patient has no complaints
Will get CT head and neck and X-ray left shoulder.
Back into see patient. Explained that his CT of the head and cervical spine are negative for any acute process. There is a left frontal hematoma that will go down with ice. Tylenol can be given for any headache pain. Return with any concerns.
Chronic conditions affecting care:
NA
Acute Exacerbation and/or Progression of Chronic Illness:
NA
*Radiology
Radiology exam reviewed: radiology read reviewed (CT head-There are no focal or acute intracranial abnormalities. There is moderate diffuse cortical atrophy. There is a 12mm left lateral frontal scalp hematoma. CT cervical spine-No acute
abnormality. Multilevel cervical degenerative disc disease and degenerative facet joint disease. ) and other (Shoulder x-ray- No acute abnormalities. Degenerative osteoarthritis. )
*Pulse Oximetry
Patient hypoxic: no
*EKG
Interpreted by ED Provider?: NA
Rate: EKG- N/A
*Propagation Worker Interpretation
Rate: Propagation Worker- N/A
*Critical Care Note
Total Time (30-74mins, 75-104mins- exclusive of procedures): Not Applicable
ED Attending Note
-
Portions of this chart may have been created with voice recognition software.� Occasional wrong word or��sound alike� substitutions may have occurred due to the inherent limitations of voice recognition software.
Discharge Plan
Departure
Patient Disposition: Jail/SNF
Date of Disposition: 06/12/24
Time of Disposition: 21:40
Patient with high blood pressure during this ER visit?: Yes
Condition: Good
Covid-19: Not Applicable
Discharge Problem:
Accidental fall, Traumatic hematoma of forehead
Instructions: Preventing falls in adults, BLOOD PRESSURE, Hematoma
Prescriptions:
No Action
donepezil 5 mg Tablet
5 mg PO HS
finasteride 5 mg Tablet
5 mg PO DAILY
atorvastatin 20 mg Tablet
20 mg PO HS
loperamide 2 mg Capsule
2 mg PO Q6HPRN PRN (Reason: loose stools)
Fleet Enema 19-7 gram/118 mL Enema
118 ml OR PRN PRN (Reason: constipation)
Rx Instructions:
If no BM times 4 days, give on 7-3 shift
ondansetron 4 mg Tablet,Disintegrating
4 mg PO Q6HPRN PRN (Reason: nausea, vomiting)
polyethylene glycol 3350 17 gram powder in packet
17 g PO BIDPRN PRN (Reason: constipation)
acetaminophen [Tylenol] 325 mg Tablet
650 mg PO Q6HPRN PRN (Reason: fever, mild pain)
Rx Instructions:
For fever and mild pain
magnesium hydroxide [Milk of Magnesia] 400 mg/5 mL Suspension
2,400 mg PO HSPRN PRN (Reason: constipation)
Rx Instructions:
if no BM x 2 days
bisacodyl [Dulcolax (bisacodyl)] 10 mg Suppository
10 mg OR DAILYPRN PRN (Reason: constipation)
Rx Instructions:
if no BM x 3 days, give at 0600
amoxicillin-pot clavulanate 875-125 mg Tablet
1 tab PO Q12 2 Days Qty: 4 0RF
Probiotic 15 billion cell capsule, sprinkle
1 cap PO DAILY 5 Days Qty: 5 0RF
Referrals:
Jayson Escobedo MD [Family Provider] - Follow up in 2-3 days
Activity Restrictions/Additional Instructions:
As discussed, patient CT of the head and neck are negative for any acute process. There is a hematoma of the forehead. Please use ice to this area to help this go down. Tylenol 1000mg every 6 hours as needed for any headache. Shoulder x-ray negative
for any fractures. Follow up with the family doctor for recheck. IF YOU HAVE ANY OTHER CONCERNS PLEASE RETURN TO THE EMERGENCY ROOM.
Interventions
Interventions:
*Risk Screen - Suicide Last Done: 06/12/24 19:32
*General Assessment Last Done: 06/12/24 19:32
*Neglect/Abuse Screening Last Done: 06/12/24 19:32
*ED COVID-19 Vaccine History Last Done: 06/12/24 19:32
*Nursing Disposition Last Done: 06/13/24 00:35
ED-Musculoskeletal Assessment Last Done: 06/12/24 19:45
ED- Neurological Assessment Last Done: 06/12/24 19:45
ED-Skin Assessment Last Done: 06/12/24 19:45
Discharge Date and Time
Discharge Date/Time: 06/13/24 00:36
Print Language: [id number]
[2024-06-12 21:00] VITALS: BP 144/82
[2024-06-13 00:35] VITALS: BP 128/73
== END 2024-06-13 00:36 ==
LOC: EMR 19:27
PROVIDERS: EMERGENCY PHYSICIAN Emergency Medicine; FAMILY PHYSICIAN Family Medicine
DX: S00.83XA Contusion of other part of head, initial encounter (principal); W19.XXXA Unspecified fall, initial encounter; F03.90 Unspecified dementia, unspecified severity, without behavioral disturbance, psychotic disturbance, mood disturbance, and anxiety; E78.00 Pure hypercholesterolemia, unspecified; I25.2 Old myocardial infarction; Z87.891 Personal history of nicotine dependence; N40.0 Benign prostatic hyperplasia without lower urinary tract symptoms
CPT/HCPCS: 99284; 70450; 72125; 73030

== ENCOUNTER → 2024-07-04 11:43 | Outpatient (REF) | payer MEDICARE, OTHER, SELFPAY ==
[2024-07-05 18:35] LABS: Urine Albumin Negative (Neg - Trace); Urine Bilirubin Negative (Negative); Urine Character Clear (Clear); Urine Color Yellow; Urine Glucose Negative (Negative); Urine Ketone Negative (Negative); Urine Leukocyte Negative (Negative); Urine Nitrite Negative (Negative); Urine Occult Blood Negative (Negative); Urine Specific Gravity 1.025 (<1.030); Urine Urobilinogen Negative (Neg - 1+)
== END ==
LOC: OLABWHC 11:43
PROVIDERS: ATTENDING PHYSICIAN Family Medicine
DX: F03.90 Unspecified dementia, unspecified severity, without behavioral disturbance, psychotic disturbance, mood disturbance, and anxiety (principal); R41.0 Disorientation, unspecified; N39.0 Urinary tract infection, site not specified
CPT/HCPCS: 81003; 87086

== ENCOUNTER → 2024-08-28 13:07 | Outpatient (REF) | payer MEDICARE, OTHER, SELFPAY ==
[2024-08-28 13:29] LABS: Hematocrit 40.6 % (39.0-52.0); Hemoglobin 13.2 g/dL (13.0-18.0); Mean Corp Hgb Conc. 32.5 g/dL (33.0-37.0); Mean Corpuscular Hgb 30.7 pg (27.0-31.0); Mean Corpuscular Volume 94.4 fL (80.0-94.0); Mean Platelet Volume 10.3 fL (7.4-10.4); Platelet Count 171 10^3/uL (130-400); Red Cell Dist. Width 14.9 % (11.5-14.5); White Blood Cell Count 8.2 10^3/uL (4.8-10.8)
[2024-08-28 13:44] LABS: Urine Albumin Negative (Neg - Trace); Urine Bilirubin Negative (Negative); Urine Character Slightly Cloudy (Clear); Urine Glucose Negative (Negative); Urine Ketone Negative (Negative); Urine Leukocyte Negative (Negative); Urine Nitrite Negative (Negative); Urine Occult Blood Negative (Negative); Urine Specific Gravity 1.015 (<1.030); Urine Urobilinogen Negative (Neg - 1+)
[2024-08-28 13:45] LABS: Urine Color Straw
[2024-08-28 14:01] LABS: ALT (SGPT) 15 U/L (0-50); AST (SGOT) 21 U/L (17-59); Albumin 3.8 g/dl (3.5-5.0); Alkaline Phosphatase 70 U/L (38-126); Blood Urea Nitrogen 21 mg/dl (9-20); Calcium 9.1 mg/dl (8.4-10.2); Carbon Dioxide 29 mmol/L (22-30); Chloride 106 mmol/L (98-107); Glucose 94 mg/dl (70-99); Magnesium 2.1 mg/dl (1.6-2.3); Potassium 3.9 mmol/L (3.5-5.1); Sodium 142 mmol/L (135-145); Total Bilirubin 0.6 mg/dl (0.2-1.3); Total Protein 6.2 g/dl (6.3-8.2); eGFR > 60.00
== END ==
LOC: OLABWHC 13:07
PROVIDERS: ATTENDING PHYSICIAN Family Medicine
DX: R41.0 Disorientation, unspecified (principal); E78.5 Hyperlipidemia, unspecified; N40.0 Benign prostatic hyperplasia without lower urinary tract symptoms
CPT/HCPCS: 36415; 80053; 81003; 83735; 85027

== ENCOUNTER → 2025-02-21 12:08 | Outpatient (REF) | payer MEDICARE, OTHER, SELFPAY ==
[2025-02-21 13:04] LABS: Urine Character Clear (Clear)
[2025-02-21 13:38] LABS: Urine Red Blood Cell 0-2 /HPF (0-2); Urine White Cell 0-2 /HPF (0-5)
[2025-02-21 14:00] LABS: Urine Squamous Cell 0-2 /LPF (Few)
== END ==
LOC: OLABWHC 12:08
PROVIDERS: ATTENDING PHYSICIAN Family Medicine
DX: N39.0 Urinary tract infection, site not specified (principal)
CPT/HCPCS: 81003; 81015; 87086